=== PATIENT | female | born 1975 | race Caucasian/White ===

== ENCOUNTER 2020-01-04 17:22 | Emergency (ER) | payer OTHER, SELFPAY ==
--- NOTE | 2020-01-04 17:26 | ED.SKABFB ---
HPI - Skin/Abscess/Foreign Bdy General Chief complaint: Skin/Abscess/Foreign Body Stated complaint: red/swollen spot on left arm Time Seen by Provider: 01/04/20 17:34 Source: patient and RN notes reviewed Mode of arrival: ambulatory Limitations: no limitations History of Present Illness HPI narrative: 44-year-old female presents with concern for itchy red area to her left upper arm she noticed just prior to arrival. Denies pain, injury, sting. Reports suddenly felt an itch and noticed the redness. Denies any intervention. Denies any swollen lips, swollen tongue, difficulty breathing, nausea, vomiting, diarrhea, fever complaint: rash Related Data Home Medications Medication Instructions Recorded Confirmed No Home Medications 01/04/20 01/04/20 Allergies Allergy/AdvReac Type Severity Reaction Status Date / Time No Known Allergies Allergy Verified 01/04/20 17:37 Review of Systems Review of Systems: Narrative: CONSTITUTIONAL: Denies malaise, chills, sweats, or fever. EYES: Denies visual changes, redness, or discharge. ENT: Denies swollen lips, swollen tongue, difficulty swallowing CARDIOVASCULAR: Denies chest pain, palpitations, or edema. RESPIRATORY: Denies cough or dyspnea. GASTROINTESTINAL: Denies abdominal pain, nausea, vomiting, diarrhea SKIN: Reports red itchy rash on left elbow All systems reviewed & are unremarkable except as noted in HPI and below PMFSH Family History Family History (Updated 12/22/15 @ 23:19 by DOCTOR UNKNOWN) Father Family history of diabetes mellitus in first degree relative Mother Family history of colonic diverticulitis Social History Social History Smoking status: Never smoker Comments At time of signature, agree with nursing past medical, surgical, social and family history. There is no relevant family history pertinent to the presenting complaint Exam Narrative: Exam Narrative: GENERAL: Well-appearing, well-nourished, and in no acute distress. HEAD: Normocephalic EYES: PERRLA, conjunctivae clear ENT: Nares clear. Mucous membranes moist. Oropharynx without erythema edema, or lesions. NECK: Supple. No lymphadenopathy. CHEST: No respiratory distress. Speaks in full sentences. HEART: Regular rate and rhythm. SKIN: Warm, dry. Approximately 12 cm x 9 cm area of erythema, warmth with irregular borders consistent with hive, no entry site, scab, stinger noted. NEURO: Alert and oriented x3. PSYCH: Normal mood and affect Course Course Emergency Course: Patient is aware of diagnosis, understands and agrees to treatment plan. Anticipatory guidance given. Patient agrees to follow-up as directed and is aware of reasons to seek care at the emergency department. Portions of this record may have been created with voice recognition software Vital Signs Vital signs: Vital Signs Temperature 98.2 F 01/04/20 17:30 Pulse Rate 67 01/04/20 17:30 Respiratory Rate 14 01/04/20 17:30 Blood Pressure 128/78 01/04/20 17:30 Pulse Oximetry 99 01/04/20 17:30 Temperature 98.2 F 01/04/20 17:30 Pulse Rate 67 01/04/20 17:30 Respiratory Rate 14 01/04/20 17:30 Blood Pressure 128/78 01/04/20 17:30 Pulse Oximetry 99 01/04/20 17:30 Reviewed. MDM - Skin/Abscess/Foreign Bdy MDM Narrative Medical decision making narrative: Does not appear at this time to be erythema multiforme, bullous, SJS, TEN; no evidence at this time to suggest RMSF, endocarditis or Lyme disease; patient looks well, nontoxic and is tolerating oral intake; no neurologic signs or symptoms; no headache, photophobia or neck pain; afebrile; appropriate for initial outpatient treatment; discussed the importance of follow-up, patient agrees; question, viral exanthema, contact dermatitis, allergic dermatitis, eczema, urticaria, insect bite. No soft palate or uvula edema, no tongue, lip edema or other mucosal involvement, no respiratory compromise, no stridor, no wheezing, no wheezing, no history o
[2020-01-04 17:30] VITALS: BP 128/78; PULSE 67; RESP 14; TEMP 36.8; O2SAT 99
== END 2020-01-04 17:47 | disposition home or self-care (01) ==
PROVIDERS: Emergency Provider Nurse Practitioner; PCP Family Medicine
DX: S40.862A Insect bite (nonvenomous) of left upper arm, initial encounter (principal); W57.XXXA Bitten or stung by nonvenomous insect and other nonvenomous arthropods, initial encounter
CPT/HCPCS: 99211; G0463

== ENCOUNTER → 2021-11-08 15:40 | Outpatient (CLI) | payer OTHER, SELFPAY ==
--- NOTE | ~2021-11-08 | XR_ITS ---
XR cervical spine 4-5V DATE: 11/08/2021 16:08 INDICATION: Neck pain TECHNIQUE: AP, open-mouth, odontoid, bilateral oblique and lateral views COMPARISON: None FINDINGS: There is mild reversal of cervical curvature. C1 and C2 are normally aligned and the odontoid process is intact. No fracture or dislocation or lock ed facet or prevertebral soft tissue swelling. No significant bony encroachment upon the neural foramina. IMPRESSION: Reversal of cervical curvature Reviewed, dictated and finalized at location A.
== END ==
PROVIDERS: PCP Family Medicine; Visit Provider Chiropractor
DX: M54.2 Cervicalgia (principal)
CPT/HCPCS: 72050

== ENCOUNTER 2022-01-17 16:14 | Outpatient (CLI) | payer OTHER, SELFPAY ==
--- NOTE | ~2022-01-17 | MM_ITS ---
EXAMINATION: MM screening [facility] BI w [place] HISTORY: Screening TECHNIQUE: Craniocaudal and mediolateral oblique 3-D tomosynthesis images were obtained and synthetic 2-D images were generated. CAD analysis was submitted and interpreted. COMPARISON: Comparison to multiple prior studies sequentially, with oldest reviewed study dated 03/27. BREAST PARENCHYMAL COMPOSITION: The breasts are heterogeneously dense, which may obscure small masses FINDINGS: There are multiple developing bilateral breast masses which are partially obscured by dense fibroglandular tissue. There are no suspicious calcifications. IMPRESSION: 1. Multiple developing bilateral breast masses which are obscured. 2. Bilateral complete ultrasound recommended. BI-RADS Category 0: Incomplete: Needs additional imaging evaluation. Reviewed, dictated and finalized at location A.
== END 2022-01-17 16:15 | disposition home or self-care (01) ==
PROVIDERS: PCP Family Medicine; Visit Provider Family Medicine
DX: Z12.31 Encounter for screening mammogram for malignant neoplasm of breast (principal); R92.8 Other abnormal and inconclusive findings on diagnostic imaging of breast
CPT/HCPCS: 77063; 77067

== ENCOUNTER 2022-05-08 15:23 | Emergency (ER) | payer OTHER, SELFPAY ==
[2022-05-08 15:28] VITALS: BP 140/76; PULSE 118; RESP 18; TEMP 39; O2SAT 100
--- NOTE | 2022-05-08 16:33 | ED.URI ---
HPI - URI/Sore Throat General Chief Complaint: Upper Respiratory Infection Stated Complaint: Abdominal Pain/Diarrhea/Fever Time Seen by Provider: 05/08/22 16:33 Source: patient and RN notes reviewed Mode of arrival: ambulatory Limitations: no limitations History of Present Illness HPI Narrative: 37-year-old female presented for complaints of fever, diarrhea, and fatigue. Onset today. States at 0300 she woke in the night with diarrhea and abd cramping. she later woke to her alarm clock and had a few more episodes of diarrhea, for which she took Imodium and symptoms improved. Today at lunch she felt fatigued with abdominal cramping, fevers and chills and low back pain. She states her temperature was 101.2? at school today. She endorses postnasal drainage. She denies cough, shortness of breath, wheezing. 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 Related Data Home Medications Medication Instructions Recorded Confirmed levothyroxine 50 mcg tablet 50 mcg PO DAILY 05/08/22 05/08/22 (Euthyrox) phentermine 37.5 mg tablet 37.5 mg PO DAILY 05/08/22 05/08/22 Allergies Allergy/AdvReac Type Severity Reaction Status Date / Time No Known Allergies Allergy Verified 05/08/22 16:18 Review of Systems Review of Systems: ROS per HPI All systems reviewed & are unremarkable except as noted in HPI and below PMFSH Family History Family History Father Family history of diabetes mellitus in first degree relative Mother Family history of colonic diverticulitis Social History Social History Smoking status: Never smoker Comments At time of signature, I have reviewed and agree with nursing past medical, surgical, social and family history unless otherwise noted. Please see nursing chart for further information. There is no relevant family history pertinent to the presenting complaint Exam Narrative: GENERAL: ill-appearing, in no acute distress. EYES: EOMI. Conjunctivae normal. ENT: Mucous membranes pink and moist. CHEST: No respiratory distress. Clear to auscultation. HEART: Regular rate and rhythm. No murmur appreciated. Normal peripheral pulses. ABDOMEN: abd soft, nondistended, normal active bowel sounds. Nontender abdomen EXTREMITIES: Normal range of motion. No edema. SKIN: Warm, dry, no rash. Capillary refill normal. Normal skin turgor. NEURO: No focal deficits. Alert and oriented x3. PSYCH: Normal affect. Course Course Emergency Course: Patient is aware of diagnosis, understands and agrees to treatment plan. Anticipatory guidance given. Patient agrees to follow-up as directed and is aware of reasons to seek care at the emergency department. Portions of this record may have been created with voice recognition software Level of Care: Express Care Visit Vital Signs Vital signs: Vital Signs Temperature 102.2 F H 05/08/22 15:28 Pulse Rate 118 H 05/08/22 15:28 Respiratory Rate 18 05/08/22 15:28 Blood Pressure 140/76 05/08/22 15:28 Pulse Oximetry 100 05/08/22 15:28 Oxygen Delivery Room Air 05/08/22 15:28 Temperature 102.2 F H 05/08/22 15:28 Pulse Rate 118 H 05/08/22 15:28 Respiratory Rate 18 05/08/22 15:28 Blood Pressure 140/76 05/08/22 15:28 Pulse Oximetry 100 05/08/22 15:28 Oxygen Delivery Room Air 05/08/22 15:28 MDM - URI/Sore Throat MDM Narrative Medical decision making narrative: Due to lack of resources, unable to test for influenza at this time. Patient verbalizes understanding. Advised supportive measures and signs and symptoms to go to the ER. Patient is appropriate for outpatient treatment and follow-up. Differential Diagnosis Differential diagnosis: Likely upper respiratory infection, viral infection and influenza Discharge Plan Discharge Clinical Impression: Viral infection Patient Dispo
== END 2022-05-08 16:56 | disposition home or self-care (01) ==
PROVIDERS: Emergency Provider Nurse Practitioner Family; PCP Family Medicine
DX: B34.9 Viral infection, unspecified (principal)
CPT/HCPCS: 87081; 87147; 99212; G0463

== ENCOUNTER 2022-05-16 12:36 | Outpatient (CLI) | payer OTHER, SELFPAY ==
--- NOTE | ~2022-05-16 | US_ITS ---
US breast BI complete 05/16/2022 13:53 Indication: Bilateral breast masses seen on recent mammogram. Procedure: High-resolution complete bilateral breast ultrasound including all 4 quadrants in the suba reolar locations Comparison: No prior studies for comparison. Findings: There are multiple simple and complicated cysts of both breasts, largest on the right at 9: 00 measuring 4.8 x 3.1 x 2.9 cm. Largest cyst on the left measures 4.6 x 2.7 x 1.4 cm at 2:00, 4 cm f rom the nipple. No suspicious masses are identified in either breast to suggest malignancy. Impression: 1: Innumerable bilateral breast cysts corresponding to the masses seen on mammography. No sonographic evidence for malignancy. Routine yearly screening mammogram and regular clinical breast examination are recommended. BI-RADS CATEGORY 2 - BENIGN FINDINGS Reviewed, dictated and finalized at location A. [facility] Impression: 1: Innumerable bilateral breast cysts corresponding to the masses seen on mammo graphy. No sonographic evidence for malignancy. Routine yearly screening mammogram and regular clinical breast examination are recommended. BI-RADS CATEGORY 2 - BENIGN FINDINGS
== END 2022-05-16 12:37 | disposition home or self-care (01) ==
PROVIDERS: PCP Family Medicine; Visit Provider Family Medicine
DX: R92.8 Other abnormal and inconclusive findings on diagnostic imaging of breast (principal); N60.02 Solitary cyst of left breast; N60.01 Solitary cyst of right breast
CPT/HCPCS: 76641

== ENCOUNTER → 2023-01-16 16:52 | Outpatient (CLI) | payer OTHER, SELFPAY ==
--- NOTE | ~2023-01-16 | XR_ITS ---
EXAMINATION: XR foot LT min 3V DATE: 01/16/2023 17:09 INDICATION: Left heel pain TECHNIQUE: Dorsoplantar, two oblique and lateral views of the left foot were obtained. COMPARISON: Left ankle radiographs dated 11/06/2004 FINDINGS: Alignment is normal. No fracture. Mild osteoarthritis at the first metatarsophalangeal and a few tars al metatarsal and interphalangeal joints. Small Achilles calcaneal spur. No erosions. Unchanged [place]. Soft tissues are unremarkable. IMPRESSION: 1. 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 Reviewed, dictated and finalized at location A. IMPRESSION: 1. Small Achilles calcaneal spur and mild polyarticular osteoarthritis in the l eft fore and midfoot.
== END ==
PROVIDERS: PCP Family Medicine; Visit Provider Chiropractor
DX: M19.072 Primary osteoarthritis, left ankle and foot (principal); M77.32 Calcaneal spur, left foot
CPT/HCPCS: 73630

== ENCOUNTER 2023-04-23 15:51 | Emergency (ER) | payer OTHER, SELFPAY ==
--- NOTE | 2023-04-23 15:54 | ED.URI ---
HPI - URI/Sore Throat General Chief Complaint: Upper Respiratory Infection Stated Complaint: Sore Throat/Chest Congestion Time Seen by Provider: 04/23/23 15:54 Source: patient Mode of arrival: ambulatory Limitations: no limitations History of Present Illness HPI Narrative: Marquise is a 48-year-old female patient presenting to the clinic today with complaints of sore throat, nasal congestion, and chest congestion. She reports she has been having cough, chest congestion, and loss of her voice over the last month. States that sore throat started 2-3 days ago. No known fever or chills. No known exposure to anyone with COVID, flu, or strep. Has seen her PCP in the past for her symptoms and she was flu and COVID swabs at that time and they were negative. She was given a prescription for antibiotics and states that this helped slightly but as soon as she finished the antibiotics she started get sick again. MD elicited complaint: cough, sore throat, nasal congestion and sinus pain Related Data Home Medications Medication Instructions Recorded Confirmed ergocalciferol (vitamin D2) 1,250 1,250 mcg PO WEEKLY 04/23/23 04/23/23 mcg (50,000 unit) capsule levothyroxine 100 mcg tablet 100 mcg PO DAILY 04/23/23 04/23/23 Allergies Allergy/AdvReac Type Severity Reaction Status Date / Time No Known Allergies Allergy Verified 04/23/23 16:11 Review of Systems Review of Systems: Pertinent positives per HPI. Patient denies any fever, chills, rash, headache, visual changes, dizziness, shortness of breath, chest pain, palpitations, nausea, vomiting, diarrhea, constipation, abdominal pain, or any urinary issues. PMFSH Family History Family History Father Family history of diabetes mellitus in first degree relative Mother Family history of colonic diverticulitis Social History Social History Smoking status: Never smoker Comments At the time of my signature, I reviewed and agree with the nursing past medical, surgical, social, and family history. There is no relevant family history pertinent to the patient complaint. Exam Narrative: General: Well-developed, well nourished, in no apparent distress Head: Normocephalic, atraumatic Eyes: Pupils equally round and reactive to light bilaterally, EOM intact, sclera and conjunctive clear, no discharge, lids normal Ears: TMs intact and clear, ear canals clear, no drainage, grossly hearing normal. Nose: Nares patent, yellow nasal discharge, moderate inflammation, maxillary sinus tenderness. Mouth: Oral pharynx red without lesions or masses, good dentition, MMM. Postnasal drip Neck: Supple, trachea midline,enlargement of anterior cervical nodes, no thyroid masses or goiter palpable. Cardio: Regular rate and rhythm, s1 and s2 normal, no murmur appreciated. Resp: Clear to auscultation bilaterally, no rhonchi, rales, wheezing or rubs Course Course Emergency Course: Portions of this record may have been created with voice recognition software. Level of Care: Express Care Visit Vital Signs Vital signs: Vital signs reviewed MDM - URI/Sore Throat MDM Narrative Medical decision making narrative: At the time of visit patient is resting comfortably on exam table. Patient is nontoxic appearing. i suspect patient has acute bacterial rhinosinusitis. Prescription for Augmentin and prednisone was sent to the pharmacy and supportive measures were discussed with the patient she voiced understanding discharge instructions and agrees to treatment plan. Return precautions were reviewed Differential Diagnosis Differential diagnosis: Likely upper respiratory infection, otitis media, sinusitis, viral infection, bronchitis, influenza, pharyngitis and other (COVID) Discharge Plan Discharge Clinical Impression: Acute bacterial rhinosinusitis Patient Disposition: Home, S
[2023-04-23 15:59] VITALS: BP 162/88; PULSE 86; RESP 14; TEMP 37.3; O2SAT 96
== END 2023-04-23 16:13 | disposition home or self-care (01) ==
PROVIDERS: Emergency Provider Nurse Practitioner Family; PCP Family Medicine
DX: J01.90 Acute sinusitis, unspecified (principal); E03.9 Hypothyroidism, unspecified
CPT/HCPCS: 87081; 87880; 99213; G0463

== ENCOUNTER 2023-06-15 08:03 | Emergency (ER) | payer OTHER, SELFPAY ==
[2023-06-15 08:12] VITALS: BP 135/90; PULSE 90; RESP 20; TEMP 37.1; O2SAT 100
--- NOTE | 2023-06-15 08:19 | ED.URI ---
HPI - URI/Sore Throat General Chief Complaint: Upper Respiratory Infection Stated Complaint: Headahce/Neck Pain/Cough History of Present Illness HPI Narrative: Patient presents with nasal congestion postnasal drainage and cough. Patient states her cough is nonproductive and is taking Delsym for her symptoms. Patient is taking ibuprofen for her body aches. Patient states her symptoms have been going on for 6 days. Patient denies any shortness of breath no chest pain. States she has a normally healthy individual and does not smoke. Related Data Home Medications Medication Instructions Recorded Confirmed ergocalciferol (vitamin D2) 1,250 1,250 mcg PO WEEKLY 04/23/23 06/15/23 mcg (50,000 unit) capsule levothyroxine 100 mcg tablet 100 mcg PO DAILY 04/23/23 06/15/23 Allergies Allergy/AdvReac Type Severity Reaction Status Date / Time No Known Allergies Allergy Verified 06/15/23 08:18 Review of Systems Review of Systems: CONSTITUTIONAL: Denies chills, or sweats. Reports fever and generalized body aches EYES: Denies visual changes, redness, or discharge. ENT: Denies otalgia. Reports nasal congestion runny nose and sore throat CARDIOVASCULAR: Denies chest pain, palpitations, or edema. RESPIRATORY: Denies dyspnea. Reports occasional cough GASTROINTESTINAL: Denies abdominal pain, nausea, vomiting, or diarrhea. GENITOURINARY: Denies dysuria or hematuria. SKIN: Denies rash or itching. MUSCULOSKELETAL: Denies back pain, joint pain, or myalgia. Reports generalized body aches NEUROLOGIC: Denies headache, numbness, or weakness. PSYCHIATRIC: Denies anxiety or depression. [facility] Family History Family History Father Family history of diabetes mellitus in first degree relative Mother Family history of colonic diverticulitis Social History Social History Smoking status: Never smoker Comments At time of signature, agree with nursing past medical, surgical, social and family history. There is no relevant family history pertinent to the presenting complaint Exam Narrative: The patient is a well-developed, well-nourished in no acute distress. SKIN: Skin is warm and dry without erythema, swelling or exudate. There is good turgor. No tenting. HEAD: Atraumatic. Normocephalic. No temporal or scalp tenderness. EYES: Moist and bright. Sclera and conjunctivae normal. No discharge. PERRLA. Extraocular motions intact. Gross visual acuity intact. EARS: Pinna is normal shape and contour. Clear external auditory canals. TM pearly goss with good cone of light, no erythema or suppuration. Bilateral cerumen noted no gross hearing deficit. NOSE: pink, moist mucosa with good air movement. Clear rhinorrhea without nasal flaring. Septum midline. Mouth: moist mucous membranes. THROAT; mild erythema noted to posterior oropharynx with moderate postnasal drainage. Without exudate or ulceration.. Uvula midline. Normal movement of soft palate. NECK: Supple and nontender with full range of motion without discomfort. No meningeal signs. LUNGS: Equal and bilateral breath sounds without wheezes, rales or rhonchi. CHEST: The chest wall is without retractions or use of accessory muscles. HEART: Has a regular rate and rhythm without murmur, gallops, click or rub. ABDOMEN: Soft, nontender with positive active bowel sounds. No rebound tenderness. EXTREMITIES: Without cyanosis, clubbing or edema. Equal 2+ distal pulses and 2 second capillary refill noted. NEUROLOGIC: alert, active, . The patient moves all extremities with normal muscle strength. Normal muscle tone is noted. Normal coordination is noted. NO focal neurological findings noted. Course Course Level of Care: Express Care Visit Vital Signs Vital signs: Vital Signs Temperature 37.1 C 06/15/23 08:12 Pulse Rate 90 06/15/23 08:12 Respiratory Rate 20 06/15/23 08
== END 2023-06-15 08:28 | disposition home or self-care (01) ==
PROVIDERS: Emergency Provider Nurse Practitioner Family; PCP Family Medicine
DX: J06.9 Acute upper respiratory infection, unspecified (principal); J40 Bronchitis, not specified as acute or chronic; B34.9 Viral infection, unspecified; E03.9 Hypothyroidism, unspecified
CPT/HCPCS: 99213; G0463

== ENCOUNTER 2023-07-07 16:53 | Emergency (ER) | payer OTHER, SELFPAY ==
[2023-07-07 16:58] VITALS: BP 146/83; PULSE 90; RESP 20; TEMP 37.1; O2SAT 100
--- NOTE | 2023-07-07 18:23 | ED.EAR ---
HPI - Ear Problem General Chief complaint: Ear Stated complaint: Left Ear Pain Time Seen by Provider: 07/07/23 18:25 Source: patient Mode of arrival: ambulatory Limitations: no limitations History of Present Illness HPI Narrative: 48 year old female who presents to [facility] care with complaints of left ear pain since Friday 3-4 days. Patient reports that she has been taking some Ibuprofen for her discomfort.Patient reports some itching sensation along with pain to her left ear with pain radiating down into her neck. Patient reports no fevers or any other symptoms. MD Complaint: ear pain Location: left ear Duration: constant Severity: moderate Discharge from ear: Reports no Treatment prior to arrival: oral analgesic (Ibuprofen) Related Data Home Medications Medication Instructions Recorded Confirmed ergocalciferol (vitamin D2) 1,250 1,250 mcg PO WEEKLY 04/23/23 06/15/23 mcg (50,000 unit) capsule levothyroxine 100 mcg tablet 100 mcg PO DAILY 04/23/23 06/15/23 Allergies Allergy/AdvReac Type Severity Reaction Status Date / Time No Known Allergies Allergy Verified 06/15/23 08:18 Review of Systems Review of Systems: CONSTITUTIONAL: Denies malaise, chills, sweats, or fever. EYES: Denies visual changes, redness, or discharge. ENT: Reports no rhinorrhea, congestion, no sinus pain,left otalgia and no sore throat. CARDIOVASCULAR: Denies chest pain, palpitations, or edema. RESPIRATORY: Reports no cough.? Denies dyspnea. GASTROINTESTINAL: Denies abdominal pain, nausea, vomiting, diarrhea SKIN: Denies rash or itching. MUSCULOSKELETAL: Denies myalgia. NEUROLOGIC: Denies headache. All systems reviewed & are unremarkable except as noted in HPI and below PMFSH Past Medical History Medical History Fracture of right foot Hypothyroidism Surgical History Surgical History (Updated 07/08/23 @ 21:47 by Preethi Jorgensen NP) History of tonsillectomy Family History Family History Father Family history of diabetes mellitus in first degree relative Mother Family history of colonic diverticulitis Social History Social History Smoking status: Never smoker Comments At time of signature, agree with nursing past medical, surgical, social and family history. There is no relevant family history pertinent to the presenting complaint Exam Narrative: GENERAL: Well-appearing, well-nourished, and in no acute distress. HEAD: Normocephalic EYES: PERRLA, conjunctivae clear ENT: Nares clear, turbinates edematous and erythematous, clear discharge. Mucous membranes moist. TM pearly murrell with dull light reflex bilaterally; no tragal tenderness.Left ear canal excoriated with no drainage noted. Oropharynx erythematous without lesions. Tonsils not present and throat,without exudate, no drooling, no hoarseness, no trismus, uvula midline. NECK: Supple. No lymphadenopathy CHEST: Clear to auscultation, breath sounds equal. No wheezing, rhonchi, rales, or stridor. No respiratory distress, speaks in full sentences.SAO2 100% on room air HEART: Regular rate and rhythm. No murmur heard. SKIN: Warm, dry, no rash. NEURO: Alert and oriented x3. PSYCH: Normal mood and affect Course Course Emergency Course: Patient is aware of diagnosis, understands and agrees to treatment plan.? Anticipatory guidance given.? Patient agrees to follow-up as directed and is aware of reasons to seek care at the emergency department. Portions of this record may have been created with voice recognition software Level of Care: Express Care Visit Vital Signs Vital signs: Vital Signs Temperature 37.1 C 07/07/23 16:58 Pulse Rate 90 07/07/23 16:58 Respiratory Rate 20 07/07/23 16:58 Blood Pressure 146/83 H 07/07/23 16:58 Pulse Oximetry 100 07/07/23
== END 2023-07-07 18:43 | disposition home or self-care (01) ==
PROVIDERS: Emergency Provider Registered Nurse; PCP Family Medicine
DX: H60.312 Diffuse otitis externa, left ear (principal); E03.9 Hypothyroidism, unspecified
CPT/HCPCS: 99213; G0463

== ENCOUNTER 2023-08-26 11:35 | Outpatient (CLI) | payer OTHER, SELFPAY ==
--- NOTE | ~2023-08-26 | US_ITS ---
Pelvic ultrasound. Clinical History: Amenorrhea Technique: Realtime transabdominal and transvaginal scanning of the pelvis was performed. Color flow Doppler and Doppler spectral analysis were performed. Findings: The uterus is anteverted. The endometrial stripe has a thickness of 6 mm. Probable small i ntrarenal fibroid measures 1.1 cm. Cervical nabothian cysts are present. The right ovary measures 3.6 x 2.9 x 0.3 cm. No significant right ovarian or adnexal mass is seen. The left ovary measures 2.5 x 2.0 x 2.4 cm. No significant left ovarian or adnexal mass is seen. There is no evidence of free fluid in the cul de sac. Impression: Probable small uterine fibroid, as above. Reviewed, dictated and finalized at location . Impression: Probable small uterine fibroid, as above.
== END 2023-08-26 11:36 ==
LOC: MICIMG 11:36
PROVIDERS: PCP Family Medicine; Visit Provider Family Medicine
DX: N91.2 Amenorrhea, unspecified (principal)
CPT/HCPCS: 76830; 76856

== ENCOUNTER 2023-10-07 16:14 | Emergency (ER) | payer OTHER, SELFPAY ==
[2023-10-07 16:18] VITALS: BP 145/75; PULSE 94; RESP 20; TEMP 37.1; O2SAT 98
--- NOTE | 2023-10-07 17:24 | ED.URI ---
HPI - URI/Sore Throat General Chief Complaint: Upper Respiratory Infection Stated Complaint: upper respiratory Time Seen by Provider: 10/07/23 16:37 Source: patient, RN notes reviewed and old records reviewed Mode of arrival: ambulatory Limitations: no limitations History of Present Illness HPI Narrative: 48-year-old female to [facility] room for complaint of cough with thick yellow sputum, fatigue,and hoarseness intermittently over past 2 weeks. Patient denies fever, shortness breath, chest pain , allergies. patient able to tolerate fluids by mouth. Related Data Home Medications Medication Instructions Recorded Confirmed ergocalciferol (vitamin D2) 1,250 1,250 mcg PO WEEKLY 04/23/23 10/07/23 mcg (50,000 unit) capsule levothyroxine 100 mcg tablet 100 mcg PO DAILY 04/23/23 10/07/23 semaglutide 0.25 mg or 0.5 mg (2 0.25 mg subcut WEEKLY 10/03/23 10/07/23 mg/3 mL) subcutaneous pen injector phentermine 37.5 mg tablet 37.5 mg PO DAILY 10/07/23 10/07/23 Allergies Allergy/AdvReac Type Severity Reaction Status Date / Time No Known Allergies Allergy Verified 10/07/23 16:27 Review of Systems Review of Systems: All systems reviewed & are unremarkable except as noted in HPI and below Constitutional: Constitutional: Reports as per HPI, Reports fatigue and Denies fever(s) Eyes: Eyes: Reports no additional eye complaints ENT: Reports as per HPI, Reports hoarseness and Reports sinus pressure Cardiovascular: Cardiovascular: Reports no additional cardiovascular complaints, Denies chest pain and Denies dyspnea Respiratory: Respiratory: Reports no additional respiratory complaints, Reports cough, Reports pain on inspiration and Denies dyspnea Musculoskeletal: Musculoskeletal: Reports no additional musculoskeletal complaints Neurologic: Reports system reviewed and no additional complaints, except as documented Psychiatric: Psychiatric: Reports no additional psychiatric complaints [facility] Past Medical History Medical History Fracture of right foot Hypothyroidism Surgical History Surgical History History of tonsillectomy Family History Family History Father Family history of diabetes mellitus in first degree relative Mother Family history of colonic diverticulitis Social History Social History Smoking status: Never smoker Substance use type: does not use Living arrangements: with family Spiritual care concerns: No Comments At the time of my signature, I reviewed and agree with the nursing past medical, surgical, social, and family history. There is no relevant family history pertinent to the patient complaint. Exam Const: General: cooperative, comfortable, no acute distress, alert, ill appearing acutely, tired appearing and well nourished Nutritional Appearance: well nourished Orientation/consciousness: patient oriented x3 Limitations: no limitations HENMT: Head: normal to inspection Ears: TM abnormal bulging, bullous, erythematous and with fluid behind the TM Face/Nose/Sinus: Normal external nose present, Normal nares present, normal facial exam, No erythema and No edema Face and sinus: normal facial exam, no erythema and no edema Mouth: Yes Normal oral and palatal mucosa present Throat: posterior oropharynx abnormal erythema and postnasal drainage Eyes: General: appearance normal, both eyes and all related structures Neck: Neck: normal visual inspection, full ROM and no meningeal signs Lymphatic: no lymphadenopathy noted and no lymphedema noted Chest: Chest palpation & inspection: normal inspection of the chest Resp: Effort & Inspection: normal respiratory effort and able to speak in complete sentences Auscultation: clear to auscultation bilaterally
== END 2023-10-07 17:05 | disposition home or self-care (01) ==
PROVIDERS: Emergency Provider Nurse Practitioner Family; PCP Family Medicine
DX: H66.93 Otitis media, unspecified, bilateral (principal); E03.9 Hypothyroidism, unspecified
CPT/HCPCS: 99213; G0463

== ENCOUNTER 2023-10-14 06:38 | Day surgery (SDC) | payer OTHER, SELFPAY ==
[2023-08-22 12:45] VITALS: BMI 32.6
[2023-10-03 09:37] VITALS: BMI 33.8
--- NOTE | 2023-10-13 12:34 | PM.HPGS ---
History of Present Illness History of Present Illness Consent: Risks, benefits, and alternatives have been discussed and questions answered. Patient agrees to proceed with procedure. Chief complaint: Neoplasm Screening Narrative: Marquise Jeronimo is a 48 year old female Referred for colon cancer screening. Review of Systems Review of Systems: All systems reviewed & are unremarkable except as noted in HPI and below PMFSH Past Medical History Medical History Fracture of right foot Hypothyroidism Surgical History Surgical History History of tonsillectomy Family History Family History Father Family history of diabetes mellitus in first degree relative Mother Family history of colonic diverticulitis Social History Social History Smoking status: Never smoker Substance use type: does not use Living arrangements: with family Spiritual care concerns: No Meds Home Medications and Allergies Home Medications Medication Instructions Recorded Confirmed Type ergocalciferol (vitamin D2) 1,250 1,250 mcg PO WEEKLY 04/23/23 10/14/23 History mcg (50,000 unit) capsule levothyroxine 100 mcg tablet 100 mcg PO DAILY 04/23/23 10/14/23 History semaglutide 0.25 mg or 0.5 mg (2 0.25 mg subcut WEEKLY 10/03/23 10/14/23 History mg/3 mL) subcutaneous pen injector amoxicillin 875 mg tablet 875 mg PO Q12H #20 tabs 10/07/23 Rx Allergies Allergy/AdvReac Type Severity Reaction Status Date / Time No Known Allergies Allergy Verified 10/14/23 07:31 Exam Const: General: alert Orientation/consciousness: patient oriented x3 Resp: Auscultation: clear to auscultation bilaterally Cardio: Rhythm: regular rhythm GI: GI Palp: Yes Soft to palpation and No Tenderness to palpation present (GI) Neuro: General: patient oriented x3 Assessment and Plan Assessment and plan (1) Colon cancer screening: Code(s): Z12.11 - Encounter for screening for malignant neoplasm of colon Status: Acute Assessment and Plan: Colonoscopy with possible biopsy or polypectomy or cautery or injection of substances.
--- NOTE | 2023-10-14 06:47 | WPDANESEPPF ---
Anes - Initial Pre Proc Eval Procedure: Operation Date: 10/14/23 08:30 Proposed Procedures p Screening Colonoscopy - Dustin Orta MD Date/Time: 10/14/23 06:47 Surgeon: Dustin Orta MD Pre Op Diagnosis: Neoplasm Screening Patient Data Age: 48 Gender: F Height: 1.57 m Weight: 84 kg Allergies Allergy/AdvReac Type Severity Reaction Status Date / Time No Known Allergies Allergy Verified 10/14/23 07:31 Home Medications Medication Instructions Recorded Confirmed Type ergocalciferol (vitamin D2) 1,250 1,250 mcg PO WEEKLY 04/23/23 10/14/23 History mcg (50,000 unit) capsule levothyroxine 100 mcg tablet 100 mcg PO DAILY 04/23/23 10/14/23 History semaglutide 0.25 mg or 0.5 mg (2 0.25 mg subcut WEEKLY 10/03/23 10/14/23 History mg/3 mL) subcutaneous pen injector amoxicillin 875 mg tablet 875 mg PO Q12H #20 tabs 10/07/23 Rx Patient hx anesthesia problems: none Family hx anesthesia problems: none Results Review: All pre-operative results and documents have been reviewed as part of the pre-operative evaluation. [facility] Past Medical History Medical History Fracture of right foot Hypothyroidism Surgical History Surgical History History of tonsillectomy Family History Family History Father Family history of diabetes mellitus in first degree relative Mother Family history of colonic diverticulitis Social History Social History Smoking status: Never smoker Substance use type: does not use Living arrangements: with family Spiritual care concerns: No Anes - Eval Final PreProcedure Day of Procedure 10/14/23 06:47 Patient weight: obese Heart: regular rate and rhythm Lungs: clear to auscultation Airway: Mallampati scale class II Neurological: alert and oriented Last oral intake: >/= 8 hours ASA classification: II Emergent: no Anesthetic plan: proceed Anesthesia type and monitoring: general GIVS and standard monitoring Results Review: All pre-operative results and documents have been reviewed as part of the pre-operative evaluation. Informed Consent: The patient's anesthetic plan and its attendant risks and benefits were discussed with the patient/family/POA. Questions were solicited and answers provided to the satisfaction of the patient/family/POA.
[2023-10-14 07:39] VITALS: BP 138/86; PULSE 79; RESP 20; TEMP 37.2; O2SAT 98; BMI 34.3
[2023-10-14] MEDS: LACTATED RINGERS 1,000 ML 150 ML IV CONT (07:50)
[2023-10-14 08:09] VITALS: BP 117/77; PULSE 87; RESP 16; O2SAT 98
[2023-10-14 08:19] VITALS: BP 132/85; PULSE 80; RESP 16; O2SAT 98
[2023-10-14 08:29] VITALS: BP 128/95; PULSE 78; RESP 16; O2SAT 99
--- NOTE | 2023-10-14 11:05 | WPDANESPN ---
Anes - Prog Note Post-Op Date/Time: 10/14/23 11:05 Cardiovascular status: normal Respiratory status: normal Airway patency: baseline Mental status: baseline Post-Op hydration status: normal Vital Signs: Last Vital Signs Temp 37.2 C 10/14/23 07:39 Pulse 78 10/14/23 08:29 Resp 16 10/14/23 08:29 BP 128/95 H 10/14/23 08:29 Pulse Ox 99 10/14/23 08:29 O2 Del Method Room Air 10/14/23 08:29 Pain Score (VAS): 0 I/O: Intake & Output 10/13/23 10/14/23 10/14/23 23:59 07:59 15:59 Intake Total 200 Balance 200 Post-procedural complaints: none Patient Feedback: Patient satisfied with anesthetic care. Other Findings: Patient vital signs back to baseline. Patient denies nausea and vomiting. Patient's pain under control. Patient OK for discharge.
== END 2023-10-14 08:35 | disposition home or self-care (01) ==
PROVIDERS: PCP Family Medicine; Visit Provider Internal Medicine Gastroenterology
PROC: 0DJD8ZZ Inspection of Lower Intestinal Tract, Via Natural or Artificial Opening Endoscopic (ICD-10-PCS; CPT 45378; principal; 2023-10-14 08:30)
DX: Z12.11 Encounter for screening for malignant neoplasm of colon (principal); K57.30 Diverticulosis of large intestine without perforation or abscess without bleeding; K64.8 Other hemorrhoids
CPT/HCPCS: 45378

== ENCOUNTER 2024-01-22 16:16 | Outpatient (CLI) | payer OTHER, SELFPAY ==
--- NOTE | ~2024-01-22 | MM_ITS ---
EXAMINATION: MM screening [facility] w [facility] HISTORY: Screening TECHNIQUE: Craniocaudal and mediolateral oblique 3-D tomosynthesis images were obtained and synthetic 2-D images were generated. CAD analysis was submitted and interpreted. COMPARISON: Comparison to multiple prior studies sequentially, with oldest reviewed study dated 06/18. BREAST PARENCHYMAL COMPOSITION: Dense: The breasts are heterogeneously dense, which may obscure small masses FINDINGS: There are bilateral masses obscured by dense fibroglandular tissue most of which have decre ased in size over time, consistent with benign masses. There is no evidence of suspicious mass, calci fication, or architectural distortion to suggest malignancy in either breast. There has been no suspi cious interval change. IMPRESSION: 1. No mammographic evidence of malignancy. 2. Recommend routine screening mammography in one year. BI-RADS Category 2: Benign finding(s). Reviewed, dictated and finalized at location B.
== END 2024-01-22 16:17 | disposition home or self-care (01) ==
LOC: ANHIMG 16:17
PROVIDERS: PCP Family Medicine; Visit Provider Family Medicine
DX: Z12.31 Encounter for screening mammogram for malignant neoplasm of breast (principal); N63.20 Unspecified lump in the left breast, unspecified quadrant; N63.10 Unspecified lump in the right breast, unspecified quadrant
CPT/HCPCS: 77063; 77067

== ENCOUNTER 2024-07-24 12:59 | Emergency (ER) | payer OTHER, SELFPAY ==
[2024-07-24 13:05] VITALS: BP 143/72; PULSE 88; RESP 20; TEMP 36.6; O2SAT 99
--- NOTE | 2024-07-24 13:08 | ED.URI ---
HPI - URI/Sore Throat General Chief Complaint: Upper Respiratory Infection Stated Complaint: Sore Throat/Cough Time Seen by Provider: 07/24/24 13:08 Source: patient and RN notes reviewed Mode of arrival: ambulatory Limitations: no limitations History of Present Illness HPI Narrative: 41-year-old female presents with concern of for 3 week history of symptoms that worsen several days ago. Reports her symptoms started to get better and then got worse. She reports she has been taking [id number] medications without relief. She reports ear pain, sore throat, drainage, pain across her cheeks and upper chest discomfort. MD elicited complaint: cough and nasal congestion Related Data Home Medications ?Medication ?Instructions ?Recorded ?Confirmed ?Last Taken ?Type levothyroxine 100 mcg tablet 88 mcg PO DAILY 04/23/23 07/24/24 10/14/23 06:30 History semaglutide 0.25 mg or 0.5 mg (2 0.25 mg subcut WEEKLY 10/03/23 07/24/24 09/27/23 History mg/3 mL) subcutaneous pen injector Allergies Allergy/AdvReac Type Severity Reaction Status Date / Time No Known Allergies Allergy Verified 07/24/24 13:03 Review of Systems Review of Systems: CONSTITUTIONAL: Reports malaise, sweats. Denies chills, or fever. EYES: Denies visual changes, redness, or discharge. ENT: Reports rhinorrhea, congestion, sinus pain, otalgia and sore throat. CARDIOVASCULAR: Denies chest pain, palpitations, or edema. RESPIRATORY: Reports cough and chest congestion. Denies dyspnea. GASTROINTESTINAL: Denies abdominal pain, nausea, vomiting, diarrhea SKIN: Denies rash or itching. MUSCULOSKELETAL: Denies myalgia. NEUROLOGIC: Denies headache. All systems reviewed & are unremarkable except as noted in HPI and below PMFSH Past Medical History Medical History Fracture of right foot Hypothyroidism Surgical History Surgical History History of tonsillectomy Family History Family History Father Family history of diabetes mellitus in first degree relative Mother Family history of colonic diverticulitis Social History Social History Smoking status: Never smoker Substance use type: does not use Living arrangements: with family Spiritual care concerns: No Comments At time of signature, agree with nursing past medical, surgical, social and family history. There is no relevant family history pertinent to the presenting complaint Exam Narrative: GENERAL: Well-appearing, well-nourished, and in no acute distress. HEAD: Normocephalic EYES: PERRLA, conjunctivae clear ENT: Nares clear, turbinates edematous and erythematous. Mucous membranes moist. TM pearly murrell with dull light reflex bilaterally; no tragal tenderness. Oropharynx not erythematous without lesions. Tonsils not enlarged and without exudate, no drooling, no hoarseness, no trismus, uvula midline. NECK: Supple. No lymphadenopathy CHEST: Clear to auscultation, breath sounds equal. No wheezing, rhonchi, rales, or stridor. No respiratory distress, speaks in full sentences. HEART: Regular rate and rhythm. No murmur heard. SKIN: Warm, dry, no rash. NEURO: Alert and oriented x3. PSYCH: Normal mood and affect Course Course Emergency Course: Patient is aware of diagnosis, understands and agrees to treatment plan. Anticipatory guidance given. Patient agrees to follow-up as directed and is aware of reasons to seek care at the emergency department. Portions of this record may have been created with voice recognition software Level of Care: Express Care Visit Vital Signs Vital signs: Vital Signs Temperature 98 F 07/24/24 13:05 Pulse Rate 88 07/24/24 13:05 Respiratory Rate 20 07/24/24 13:05 Blood Pressure 143/72 H 07/24/24 13:05 Pulse Oximetry 99 07/24/24 13:05 Oxygen Delivery Room Air 07/24/24 13:05 Temperature 98 F 07/24/24 13:05 Pulse Rate 88 07/24/24 13:05 Respiratory Rate 20 07/24/24 13:05 Blood Pressure 143/72 H 07/24/24 13:05 Pulse Oximetry 99 07/24/24 13:05 Oxygen Delivery Room Air 07/24/24 13:05 Reviewed. MDM - URI/Sore Throat MDM Narrative Medical decision making narrative: Differential diagnosis considered: De La Torre virus, strep pharyngitis, allergic rhinitis, upper respiratory tract infection, sinusitis, rhinosinusitis, nasopharyngitis. viral pharyngitis, otitis media, otitis externa, pneumonia, bronchitis, viral cough syndrome, viral syndrome, and influenza. Exam findings show no acute concerns or changes; patient is non-toxic appearing and is in no distress. Patient is appropriate for outpatient treatment and follow-up. Lab Data Attestation: I reviewed the patient's lab results. Critical Care Time Critical Care Time Critical Care Time: No Discharge Plan Discharge Clinical Impression: Sinusitis Patient Disposition: Home, Self-Care Condition: Stable Instructions: Antibiotic Form, Sinusitis (ED) Additional Instructions: Take medications as prescribed Nonprescription pain medications, such as acetaminophen (eg, Tylenol) or ibuprofen (eg, Motrin, Advil), are recommended for pain. Flushing the nose and sinuses with a saline solution several times per day has been proven to decrease pain associated with congestion and shorten the duration of symptoms. Nasal steroids (such as Flonase, 2 sprays in each nostril daily) can help to reduce swelling inside the nose, usually within two to three days. These drugs have few side effects and relieve symptoms in most people. Oral decongestants (pseudoephedrine and phenylephrine) may be helpful if you have associated symptoms of ear pain or fullness. Nasal decongestant sprays, including oxymetazoline (Afrin) and phenylephrine (Jaya-Synephrine), can be used to temporarily treat congestion. However, these sprays should not be used for more than two to three days due to the risk of rebound congestion (when the nose becomes congested constantly unless the medication is used repeatedly), possible addiction, and long-term consequences of frequent use, including persistent nasal dryness and crusting, which is very difficult to treat once it has developed. Medications to thin secretions (such as guaifenesin) may help to clear mucus. Please follow-up with your primary care doctor in the next 1-2 days. If you cannot follow-up with your primary care doctor please go to the ED for any urgent issues. If you have any worsening of symptoms or any other concerns please go to the ED immediately. Patient Language: Italian Prescriptions: New methylprednisolone [Medrol (Chivo)] 4 mg tablets,dose pack See Rx Instructions .ROUTE .COMPLEX Qty: 21 0RF Rx Instructions: orally per package directions amoxicillin-pot clavulanate 875-125 mg tablet 1 tablet PO Q12H 10 Days Qty: 20 0RF No Action levothyroxine 100 mcg tablet 88 mcg PO DAILY semaglutide 0.25 mg or 0.5 mg (2 mg/3 mL) Pen Injector 0.25 mg SUBCUT WEEKLY Patient Comments: Friday's Rx Instructions: for 4 weeks Follow-up/Referrals: PHYSICIAN NOT ON STAFF,NONSTAFF [Primary Care Provider] - Time of Disposition: 13:34
[2024-07-24 13:37] LABS: EDCOVIDSCREEN Negative (Negative); EDINFLUASCREEN Negative (Negative); EDINFLUBSCREEN Negative (Negative); EDSTREPNEGPOS1 Negative (Negative)
== END 2024-07-24 13:55 | disposition home or self-care (01) ==
PROVIDERS: Emergency Provider Nurse Practitioner
DX: J32.9 Chronic sinusitis, unspecified (principal); Z20.822 Contact with and (suspected) exposure to COVID-19
CPT/HCPCS: 87081; 87426; 87804; 87880; 99213; G0463

== ENCOUNTER 2025-03-11 11:38 | Emergency (ER) | payer OTHER, SELFPAY ==
[2025-03-11 11:48] VITALS: BP 138/72; PULSE 73; RESP 18; TEMP 36.9; O2SAT 97
[2025-03-11 12:25] LABS: EDSTREPNEGPOS1 Negative (Negative)
--- OUTSIDE RECORDS SUMMARY | 2025-03-11 12:25 | XMS_ITS | Clinical Summary ---
Author Organization [facility] Address [address] [place] [address] Care Team Providers Care Carpenter Bridge Name Role Phone Unknown, Notinfile Unavailable Unavailable Miscellaneous, Not In File Primary Care Provider Unavailable Allergies No known active allergies Medications multivit-min/vit C/herb no.124 (AIRBORNE GUMMY ORAL) Take by mouth Active ergocalciferol (VITAMIN D) 50,000 unit capsule 10/21/2020 Active phentermine (ADIPEX-P) 37.5 mg tablet 2 11/03/2020 Active Active Problems Problem Noted Date Diagnosed Date Abnormal finding on thyroid function test 2017 Vitamin D deficiency 12/30/2017 Medical History Medical History Date Comments Hypertension Social History Tobacco Use Types Packs/Day Years Used Date Smoking Tobacco: Never Smokeless Tobacco: Never Alcohol Use Standard Drinks/Week Comments No 0 (1 standard drink = 0.6 oz pur e alcohol) Personal Safety Answer Date Recorded Getting School Help Needed Not on file 05/28 Comments Unknown Sex and Gender Information Value Date Recorded Sex Assigned at Not on file Legal Sex Female 10:50 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 Gender Identity Not on file Sexual Orientation Not on file Obstetrics History Last Filed Vital Signs Vital Sign Reading Time Taken Comments Blood Pressure 112/58 05/09/2022 10:30 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 Pulse 92 05/09/2022 10:30 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 Temperature 36.8 C (98.3 F) 05/09/2022 7:33 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 Respiratory Rate 18 05/09/2022 10:30 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 Oxygen Saturation 100% 05/09/2022 10:30 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 Inhaled Oxygen Concentration - - Weight 81.6 kg (180 lb) 05/09/2022 2:36 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 Height 157.5 cm (5' 2) 11/21/2020 3:12 PM CDT Body Mass Index 32.92 11/21/2020 3:12 PM CDT Plan of Treatment Health Maintenance Due Date Last Done Comments Breast Cancer Screening-Mammogram 1976 Cervical Cancer Screening 1976 Colon Cancer Screening-Colonoscopy 1976 Depression Screening 1976 Hepatitis C Screening 1976 DTaP/Tdap/Td Vaccine (1 - Tdap) 02/14/1987 Hepatitis B Screening 02/14/1994 Regular Well Visit/Exam 18-64 02/14/1994 Covid-19 Vaccine (2024-2 6 season) 2025 01/31/2021, 01/09/2021 Influenza Vaccine (#1) 2025 Pneumococcal vaccine <65 Aged Out No longer eligible based on patient's age to complete this topic Insurance [facility] Care Teams Carpenter Bridge Relationship Specialty Start Date End Date Miscellaneous, Not In File PCP - General 05/09/22 Unknown, Notinfile 12/24/16
--- NOTE | 2025-03-11 12:26 | ED_ITS ---
HPI - URI/Sore Throat General Chief Complaint: Upper Respiratory Infection Stated Complaint: Sore Throat Time Seen by Provider: 03/11/25 12:21 Source: patient and RN notes reviewed Mode of arrival: ambulatory Limitations: no limitations History of Present Illness HPI Narrative: 50-year-old female patient presents today with sore throat and itchy ears since last night. Denies any additional symptoms to include cough, congestion, rhinorrhea. 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 Currently rates her pain 12/02 and has tried no OTC treatment prior to arrival. Related Data Home Medications ?Medication ?Instructions ?Recorded ?Confirmed ?Last Taken ?Type levothyroxine 100 mcg tablet 88 mcg PO DAILY 04/23/23 07/24/24 10/14/23 06:30 History semaglutide 0.25 mg or 0.5 mg (2 0.25 mg subcut WEEKLY 10/03/23 07/24/24 09/27/23 History mg/3 mL) subcutaneous pen injector Allergies Allergy/AdvReac Type Severity Reaction Status Date / Time No Known Allergies Allergy Verified 03/11/25 11:43 [facility] Past Medical History Medical History Fracture of right foot Hypothyroidism Surgical History Surgical History History of tonsillectomy Family History Family History Father Family history of diabetes mellitus in first degree relative Mother Family history of colonic diverticulitis Social History Social History Smoking status: Never smoker Substance use type: does not use Living arrangements: with family Spiritual care concerns: No Comments At time of signature, I have reviewed and agree with nursing past medical, surgical, social and family history unless otherwise noted. Please see nursing chart for further information. There is no relevant family history pertinent to the presenting complaint Exam Narrative: GENERAL: Well-appearing, well-nourished, and in no acute distress. HEAD: Normocephalic, atraumatic. EYES: EOMI. No redness or drainage. Conjunctivae normal. ENT: Mucous membranes pink and moist. Nares clear. No rhinorrhea. TMs normal bilaterally. Throat very mildly erythematous without edema or exudate. Uvula midline. NECK: Normal AROM. Supple. Bilateral tonsillar lymphadenopathy. CHEST: No respiratory distress. Clear to auscultation. HEART: Regular rate and rhythm. No murmur appreciated. EXTREMITIES: Normal range of motion. No edema. SKIN: Warm, dry, no rash. Capillary refill normal. Normal skin turgor. NEURO: No focal deficits. Alert and oriented x3. Gait steady. PSYCH: Normal affect. No signs of depression or anxiety. Course Course Level of Care: Express Care Visit Vital Signs Vital signs: Vital Signs Temperature 98.5 F 03/11/25 11:48 Pulse Rate 73 03/11/25 11:48 Respiratory Rate 18 03/11/25 11:48 Blood Pressure 138/72 03/11/25 11:48 Pulse Oximetry 97 03/11/25 11:48 Oxygen Delivery Room Air 03/11/25 11:48 Temperature 98.5 F 03/11/25 11:48 Pulse Rate 73 03/11/25 11:48 Respiratory Rate 18 03/11/25 11:48 Blood Pressure 138/72 03/11/25 11:48 Pulse Oximetry 97 03/11/25 11:48 Oxygen Delivery Room Air 03/11/25 11:48 Reviewed MDM - URI/Sore Throat MDM Narrative Medical decision making narrative: 50-year-old female patient presents today with sore throat and itchy ears since last night. Denies any additional symptoms to include cough, congestion, rhinorrhea. 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 Currently rates her pain 7/10 and has tried no OTC treatment prior to arrival. Upon exam, patient is throat is slightly erythematous without edema or exudate. Remainder of exam is normal. Rapid strep negative. Culture pending. Symptoms likely viral in etiology. Discussed [id number] medication use and duration of illness. No prescription medications indicated at this time. Anticipatory guidance given. Vital signs stable. Patient agrees with plan. Differential Diagnosis Differential diagnosis: Likely upper respiratory infection, otitis media, viral infection, pharyngitis and other (Strep throat) Lab Data Attestation: I reviewed the patient's lab results. Labs: Lab Results 03/11/25 03/11/25 Range/Units 12:23 12:23 POC Grp A Strep Screen Negative Negative (Negative) Critical Care Time Critical Care Time Critical Care Time: No Discharge Plan Discharge Clinical Impression: Pharyngitis Qualifiers: Pharyngitis/tonsillitis etiology: unspecified etiology Qualified Code(s): J02.9 - Acute pharyngitis, unspecified Patient Disposition: Home Condition: Stable Instructions: Pharyngitis (ED) Additional Instructions: Your rapid strep swab was negative today at [facility]. You will be notified in a few days if the culture comes back positive for strep, and appropriate antibiotics will be called in for you at that time. Your symptoms are likely due to a viral illness, which is not treated with antibiotics. Viral symptoms can be present for up to 7-10 days. Take an anti-inflammatory such as Aleve or ibuprofen for fever or pain. Rest and stay hydrated. Follow up with your PCP in 7 days if symptoms are not improving. Go to the ER immediately if you have any difficulty breathing or swallowing. Patient Language: Albanian Prescriptions: No Action levothyroxine 100 mcg tablet 88 mcg PO DAILY semaglutide 0.25 mg or 0.5 mg (2 mg/3 mL) Pen Injector 0.25 mg SUBCUT WEEKLY Patient Comments: Friday's Rx Instructions: for 4 weeks Follow-up/Referrals: Bety,Chayo Ogden NP [Primary Care Provider, Unknown] Time of Disposition: 12:28
--- OUTSIDE RECORDS SUMMARY | 2025-03-11 12:26 | XMS_ITS | Data Portability ---
Author Organization [place] - [facility] [employer], Main Office Address [address] [place] [address] Care Team Providers Care Advanced Seal Delivery System Name Role Phone CABRERATARAN Primary Care Provider Assessment No assessment recorded. Plan of Treatment Reminders Order Date Submit Date Provider Last Modified By Organization Details Last Modified Time Details Appointments None recorded. Lab pap, IG + HR HPV 2024 025 [facility], [address], [place], [address], 5 11:42:05 TSH, serum or plasma 2024 025 [facility], [address], [place], [address], 5 12:53:27 TSH, serum or plasma 2024 025 [facility], [address], [place], [address], 5 08:57:59 estradiol, serum 2024 025 [facility], [address], [place], [address], 5 07:45:42 lh + FSH, serum 2024 025 [employer], [address], [place], [address], 5 07:45:36 progesteron e, serum 2024 025 [facility], [address], [place], [address], 5 07:45:40 lipid panel, serum 2024 025 [facility], [address], [place], [address], 5 07:45:35 hepatic function panel, serum 2024 025 [facility], [address], [place], [address], 5 07:45:38 HbA1c (hemoglobin A1c), blood 2024 025 [facility], [address], [place], [address], 5 07:45:44 CMP, serum or plasma 2024 025 [facility], [address], [place], [address], 5 07:45:37 iron + TIBC + ferritin, serum 2024 025 [facility], [address], [place], [address], 5 07:45:32 CBC w/ auto diff 2024 025 [facility], [address], [place], [address], 5 07:45:39 vitamin D, 25-hydroxy, total, serum 2024 025 [facility], [address], [place], [address], 5 07:45:43 TSH, serum or plasma 2024 025 [facility], [address], [place], [address], 5 07:45:41 urinalysis, complete 2023 [email or web address] [place] [address] ([facility]), [address] [place], [address], 4 08:23:49 urinalysis, dipstick 2023 024 [facility] [address], [place], [address], 4 13:03:44 Referral None recorded. Procedures None recorded. Surgeries None recorded. Imaging None recorded. Medication Orders compounded medication [address] [facility] [address] [facility], [address] [place] [address], [address], 5 14:06:50 compounded medication [address] [facility] [address] [facility], [address] [place] [address], [address], 5 14:06:53 compounded medication [address] [facility] [address] [facility], [address] [place] [address], [address], 5 14:07:05 Patient TargetsNo targets recorded. Patient InstructionsNo instructions recorded. Reason for Referral None Reported. Results Created Date Observation Date Name Description Value Unit Range Abnormal Flag Note LastModifiedBy Organization Detail LastModifiedTime 11/10/19 25 11/09/2024 TSH TSH 0.32 mIU/L low Refer ence Range > or = 20 Years 0.40- 4.50 Pregn lokesh Range s First trime ster 0.26- 2.66 Secon d trime ster 0.55- 2.73 Third trime ster 0.43- 2.91 NO COLLE CTION DATE RECEI DEANNA. WE HAVE USED THE DATE THE SPECI MEN WAS RECEI DEANNA BY THIS LABOR ATORY THE COLLE CTION DATE. IF THIS IS INCOR RECT, PLEAS E CONTA CT CLIEN T SERVI JUJU. PHONE NUMBE R: [phone] Not Available [facility] [address] [place], [address], 11/09/2024 12:53:27 09/17/1909/18/2023 UA/M W/RFL X CULTU RE ROUTAnthony NE specific gravity 1.020 1.005- 1.030 Not Available [facility] ([facility]) [address] [place], [address], 09/19/2023 06:20:10 09/17/19 24 09/18/2023 UA/M W/RFL X CULTU RE ROUTAnthony NE pH 5.5 5.0-7. 5 Not Available [facility] ([facility]) [address] [place], [address], 09/19/2023 06:20:10 09/17/19 24 09/18/2023 UA/M W/RFL X CULTU RE ROUTAnthony NE urine-color Yellow yellow Not Available [facility] ([facility]) [address] [place], [address], 09/19/2023 06:20:10 09/17/1909/18/2023 UA/M W/RFL X CULTU RE ROUTAnthony NE appearance Cloudy clear abnormal Not Available [facility] ([facility]) [address] [place], [address], 09/19/2023 06:20:10 09/17/19 24 09/18/2023 UA/M W/RFL X CULTU RE ROUTI NE WBC esterase Negati ve negati ve Not Available [facility] ([facility]) [address] [place], [address], 09/19/2023 06:20:10 09/17/19 24 09/18/2023 UA/M W/RFL X CULTU RE, ROUTI NE protein Negati ve negati ve/tra ce Not Available [facility] ([facility]) [address] [place], [address], 09/19/2023 06:20:10 09/17/19 24 09/18/2023 UA/M W/RFL X CULTU RE, ROUTI NE glucose Negati ve negati ve Not Available [facility] ([facility]) [address] [place], [address], 09/19/2023 06:20:10 09/17/19 24 09/18/2023 UA/M W/RFL X CULTU RE, ROUTI NE ketones Negati ve negati ve Not Available [facility] ([facility]) [address] [place], [address], 09/19/2023 06:20:10 09/17/19 24 09/18/2023 UA/M W/RFL X CULTU RE, ROUTI NE occult blood Negati ve negati ve Not Available [facility] ([facility]) [address] [place], [address], 09/19/2023 06:20:10 09/17/19 24 09/18/2023 UA/M W/RFL X CULTU RE, ROUTI NE bilirubin Negati ve negati ve Not Available [facility] ([facility]) [address] [place], [address], 09/19/2023 06:20:10 09/17/19 24 09/18/2023 UA/M W/RFL X CULTU RE, ROUTI NE urobilinogen ,semi-qn 0.2 mg/dL 0.2-1. 0 Not Available [facility] ([facility]) [address] [facility], [place], [address], 09/19/2023 06:20:10 09/17/19 24 09/18/2023 UA/M W/RFL X CULTU RE, ROUTI NE nitrite, urine Negati ve negati ve Not Available [facility] ([facility]) [address] [facility], [place], [address], 09/19/2023 06:20:10 09/17/19 24 09/18/2023 UA/M W/RFL X CULTU RE, ROUTI NE microscopic examination Commen t Micro scopi c follo ws if indic ated. Not Available [facility] ([facility]) [address] [facility], [place], [address], 09/19/2023 06:20:10 09/17/19 24 09/18/2023 UA/M W/RFL X CULTU RE, ROUTI NE microscopic examination See below: Micro scopi c was indic ated and was perfo rmed. Not Available [facility] ([facility]) [address] [facility], [place], [address], 09/19/2023 06:20:10 09/17/19 24 09/18/2023 UA/M W/RFL X CULTU RE, ROUTI NE WBC 0-5 /hpf 0 - 5 Not Available [facility] ([facility]) [address] [facility], [place], [address], 09/19/2023 06:20:10 09/17/19 24 09/18/2023 UA/M W/RFL X CULTU RE, ROUTI NE RBC 0-2 /hpf 0 - 2 Not Available [facility] ([facility]) [address] [facility], [place], [address], 09/19/2023 06:20:10 09/17/19 24 09/18/2023 UA/M W/RFL X CULTU RE, ROUTI NE epithelial cells (non renal) >10 /hpf 0 - 10 abnormal Not Available [facility] ([facility]) [address] [facility], [place], [address], 09/19/2023 06:20:10 09/17/19 24 09/18/2023 UA/M W/RFL X CULTU RE, ROUTI NE epithelial cells (renal) PERIOPERATIVE ASSISTANT Not Available [facility] ([facility]) [address] [facility], [place], [address], 09/19/2023 06:20:10 09/17/19 24 09/18/2023 UA/M W/RFL X CULTU RE, ROUTI NE casts None seen /lpf none seen Not Available [facility] ([facility]) [address] [facility], [place], [address], 09/19/2023 06:20:10 09/17/19 24 09/18/2023 UA/M W/RFL X CULTU RE, ROUTI NE cast type PERIOPERATIVE ASSISTANT Not Available [facility] ([facility]) [address] [facility], [place], [address], 09/19/2023 06:20:10 09/17/19 24 09/18/2023 UA/M W/RFL X CULTU RE, ROUTI NE crystals PERIOPERATIVE ASSISTANT Not Available [facility] ([facility]) [address] [facility], [place], [address], 09/19/2023 06:20:10 09/17/19 24 09/18/2023 UA/M W/RFL X CULTU RE, ROUTI NE crystal type PERIOPERATIVE ASSISTANT Not Available [facility] ([facility]) [address] [facility], [place], [address], 09/19/2023 06:20:10 09/17/19 24 09/18/2023 UA/M W/RFL X CULTU RE, ROUTI NE mucus threads PERIOPERATIVE ASSISTANT Not Available [facility] ([facility]) [address] [facility], [place], [address], 09/19/2023 06:20:10 09/17/19 24 09/18/2023 UA/M W/RFL X CULTU RE, ROUTI NE bacteria Modera te none seen/f ew abnormal Not Available [facility] ([facility]) [address] [facility], [place], [address], 09/19/2023 06:20:10 09/17/19 24 09/18/2023 UA/M W/RFL X CULTU RE, ROUTI NE yeast PERIOPERATIVE ASSISTANT Not Available [facility] ([facility]) [address] [facility], [place], [address], 09/19/2023 06:20:10 09/17/19 24 09/18/2023 UA/M W/RFL X CULTU RE, ROUTI NE trichomonas PERIOPERATIVE ASSISTANT Not Available [facility] ([facility]) [address] [facility], [place], [address], 09/19/2023 06:20:10 09/17/19 24 09/18/2023 UA/M W/RFL X CULTU RE, ROUTI NE comment PERIOPERATIVE ASSISTANT Not Available [facility] ([facility]) [address] [facility], [place], [address], 09/19/2023 06:20:10 09/17/19 24 09/18/2023 UA/M W/RFL X CULTU RE, ROUTI NE urinalysis reflex Commen t This speci men has refle xed to a Urine Cultu re. Not Available [facility] ([facility]) [address] [facility], [place], [address], 09/19/2023 06:20:10 09/17/1909/19/2023 UA/M W/RFL X CULTU RE, ROUTI NE urine culture, routine Final report Not Available [facility] ([facility]) [address] [facility], [place], [address], 09/19/2023 06:20:10 09/17/19 24 09/19/2023 UA/M W/RFL X CULTU RE, ROUTI NE result 1 No growth Not Available [facility] ([facility]) [address] [facility], [place], [address], 09/19/2023 06:20:10 09/17/19 24 09/17/2023 urina lysis , dipst ick Leukocytes (reference range: negative abel/ l) Negati ve Not Available [address], [place], [address], 09/17/2023 12:45:38 09/17/1909/17/2023 urina lysis , dipst ick Nitrite (reference rage: negative mg/dl) negati ve Not Available [address], [place], [address], 09/17/2023 12:45:38 09/17/19 24 09/17/2023 urina lysis , dipst ick Urobilinogen (reference range: 0.2-1 mg/dl) 0.2 Not Available [address], [place], [address], 09/17/2023 12:45:38 09/17/19 24 09/17/2023 urina lysis , dipst ick Protein (reference range: negative mg/dl) Negati ve Not Available [address], [place], [address], 09/17/2023 12:45:38 09/17/19 24 09/17/2023 urina lysis , dipst ick pH (reference range: 5-7) 6.0 Not Available [address], [place], [address], 09/17/2023 12:45:38 09/17/19 24 09/17/2023 urina lysis , dipst ick Blood (reference range: negative Nick/ l) Negati ve Not Available [address], [place], [address], 09/17/2023 12:45:38 09/17/19 24 09/17/2023 urina lysis , dipst ick Specific [place] (reference range: 1.005-1.030) 1.030 Not Available [address], [place], [address], 09/17/2023 12:45:38 09/17/19 24 09/17/2023 urina lysis , dipst ick Ketone (reference range: negative mg/dl) Negati ve Not Available [address], [place], [address], 09/17/2023 12:45:38 09/17/19 24 09/17/2023 urina lysis , dipst ick Bilirubin (reference range: negative mg/dl) Negati ve Not Available [address], [place], [address], 09/17/2023 12:45:38 09/17/19 24 09/17/2023 urina lysis , dipst ick Glucose (reference range: negative mg/dl) Negati ve Not Available [address], [place], [address], 09/17/2023 12:45:38 09/17/19 24 09/17/2023 urina lysis , dipst ick Appearance Clear Not Available [address], [place], [address], 09/17/2023 12:45:38 09/17/19 24 09/17/2023 urina lysis , dipst ick Color Yellow Not Available [address], [place], [address], 09/17/2023 12:45:38 06/05/19 25 06/06/2024 IRON, TIBC AND MIGNON TIN PANEL iron, total 73 mcg/d L 40-190 normal Not Available [address], [address], 06/06/2024 07:45:32 06/05/19 25 06/06/2024 IRON, TIBC AND MIGNON TIN PANEL iron binding capacity 277 mcg/d L_(ca lc) 250-45 0 normal Not Available [address], [address], 06/06/2024 07:45:32 06/05/19 25 06/06/2024 IRON, TIBC AND MIGNON TIN PANEL % saturation 26 %_(ca lc) 16-45 normal Not Available [address], [address], 06/06/2024 07:45:32 06/05/19 25 06/06/2024 IRON, TIBC AND MIGNON TIN PANEL ferritin 45 NG/mL 16-232 normal Not Available [address], [address], 06/06/2024 07:45:32 06/05/19 25 06/06/2024 LIPID PANEL , STAND ANGELIQUE cholesterol, total 184 mg/dL <200 normal Not Available [address], [address], 06/06/2024 07:45:35 06/05/19 25 06/06/2024 LIPID PANEL , STAND ANGELIQUE HDL cholesterol 51 mg/dL > or = 50 normal Not Available [address], [address], 06/06/2024 07:45:35 06/05/19 25 06/06/2024 LIPID PANEL , STAND ANGELIQUE triglyceride s 64 mg/dL <150 normal Not Available [facility] [address] [place], [address], 06/06/2024 07:45:35 06/05/1906/06/2024 LIPID PANEL , STAND ANGELIQUE LDL-choleste rol 117 mg/dL _(bandar c) high Refer ence range : <100 Tiara able range <100 mg/dL for prima ry preve ntion ; <70 mg/dL for patie nts with CHD or diabe tic patie nts with > or = 2 CHD risk facto rs. LDL-C is now calcu lated using the Isabelle n-Hop kins calcu briseida n, which is a valid ated novel sumayao brent ventura than the Fried juliana equat ion in the estim ation of LDL-C . Isabelle venegas SS et al. WEN. 2013; 310(1 9): 2061- 2068 (http ://ed ucati on.Cloze raymondGolden Hill Paugussetts. com/f aq/FA Q164) Not Available [facility] [address], [place], [address], 06/06/2024 07:45:35 06/05/1906/06/2024 LIPID PANEL , STAND ANGELIQUE chol/HDLC ratio 3.6 (calc ) <5.0 normal Not Available [facility] [address] [place], [address], 06/06/2024 07:45:35 06/05/1906/06/2024 LIPID PANEL , STAND ANGELIQUE non HDL cholesterol 133 mg/dL _(bandar c) <130 high For patie nts with diabe corrine plus 1 major ASCVD risk facto r, treat ing to a non-H DL-C goal of <100 mg/dL (LDL- C of <70 mg/dL ) is consi yonisd a thera peutanthony c optio n. Not Available [facility] [address] [place], [address], 06/06/2024 07:45:35 06/05/1906/06/2024 FSH AND LH FSH 30.7 mIU/m L normal Refer ence Range Folli cular Phase 2.5-1 0.2 Mid-c ycle Peak 3.1-1 7.7 Lutea l Phase 1.5- 9.1 Postm enopa usal 23.0- 116.3 Not Available [address], [address], 06/06/2024 07:45:36 06/05/19 25 06/06/2024 FSH AND LH LH 29.1 mIU/m L normal Refer ence Range Folli cular Phase 1.9-1 2.5 Mid-C ycle Peak 8.7-7 6.3 Lutea l Phase 0.5-1 6.9 Postm enopa usal 10.0- 54.7 Not Available [address], [address], 06/06/2024 07:45:36 06/05/19 25 06/06/2024 COMPR EHENS DERA METAB OLIC PANEL glucose 83 mg/dL 65-99 normal Fasti ng refer ence inter tonya Not Available [address], [address], 06/06/2024 07:45:37 06/05/19 25 06/06/2024 COMPR EHENS DREA METAB OLIC PANEL urea nitrogen (BUN) 12 mg/dL 7-25 normal Not Available [address], [address], 06/06/2024 07:45:37 06/05/19 25 06/06/2024 COMPR EHENS DREA METAB OLIC PANEL creatinine 0.85 mg/dL 0.50-0 .99 normal Not Available [address], [address], 06/06/2024 07:45:37 06/05/19 25 06/06/2024 COMPR EHENS DREA METAB OLIC PANEL eGFR 84 mL/mi n/1.7 3m2 > or = 60 normal Not Available [address], [address], 06/06/2024 07:45:37 06/05/19 25 06/06/2024 COMPR EHENS DREA METAB OLIC PANEL BUN/creatini ne ratio SEE NOTE: (calc ) 6-22 Not Repor germaine: BUN and Creat inine are withi n refer ence range . Not Available [address], [address], 06/06/2024 07:45:37 06/05/19 25 06/06/2024 COMPR EHENS DREA METAB OLIC PANEL sodium 138 mmol/ L 135-14 6 normal Not Available [address], [address], 06/06/2024 07:45:37 06/05/19 25 06/06/2024 COMPR EHENS DREA METAB OLIC PANEL potassium 4.6 mmol/ L 3.5-5. 3 normal Not Available [address], [address], 06/06/2024 07:45:37 06/05/19 25 06/06/2024 COMPR EHENS DREA METAB OLIC PANEL chloride 106 mmol/ L 98-110 normal Not Available [address], [address], 06/06/2024 07:45:37 06/05/19 25 06/06/2024 COMPR EHENS DREA METAB OLIC PANEL carbon dioxide 27 mmol/ L 20-32 normal Not Available [address], [address], 06/06/2024 07:45:37 06/05/19 25 06/06/2024 COMPR EHENS DREA METAB OLIC PANEL calcium 9.1 mg/dL 8.6-10 .2 normal Not Available [address], [address], 06/06/2024 07:45:37 06/05/19 25 06/06/2024 COMPR EHENS DREA METAB OLIC PANEL protein, total 6.7 g/dL 6.1-8. 1 normal Not Available [address], [address], 06/06/2024 07:45:37 06/05/19 25 06/06/2024 COMPR EHENS DREA METAB OLIC PANEL albumin 4.3 g/dL 3.6-5. 1 normal Not Available [address], [address], 06/06/2024 07:45:37 06/05/19 25 06/06/2024 COMPR EHENS DREA METAB OLIC PANEL globulin 2.4 g/dL_ (calc ) 1.9-3. 7 normal Not Available [address], [address], 06/06/2024 07:45:37 06/05/1906/06/2024 COMPR EHENS DREA METAB OLIC PANEL albumin/glob ulin ratio 1.8 (calc ) 1.0-2. 5 normal Not Available [address], [address], 06/06/2024 07:45:37 06/05/1906/06/2024 COMPR EHENS DREA METAB OLIC PANEL bilirubin, total 1.1 mg/dL 0.2-1. 2 normal Not Available [address], [address], 06/06/2024 07:45:37 06/05/19 25 06/06/2024 COMPR EHENS DREA METAB OLIC PANEL alkaline phosphatase 59 U/L 31-125 normal Not Available [address] [address] [place], [address], 06/06/2024 07:45:37 06/05/19 25 06/06/2024 COMPR EHENS DREA METAB OLIC PANEL AST 15 U/L 10-35 normal Not Available [address], [address], 06/06/2024 07:45:37 06/05/19 25 06/06/2024 COMPR EHENS DREA METAB OLIC PANEL ALT 18 U/L 6-29 normal Not Available [address], [address], 06/06/2024 07:45:37 06/05/19 25 06/06/2024 HEPAT IC FUNCT ION PANEL protein, total 6.7 g/dL 6.1-8. 1 normal Not Available [address], [address], 06/06/2024 07:45:38 06/05/19 25 06/06/2024 HEPAT IC FUNCT ION PANEL albumin 4.3 g/dL 3.6-5. 1 normal Not Available [address], [address], 06/06/2024 07:45:38 06/05/19 25 06/06/2024 HEPAT IC FUNCT ION PANEL globulin 2.4 g/dL_ (calc ) 1.9-3. 7 normal Not Available [address], [address], 06/06/2024 07:45:38 06/05/19 25 06/06/2024 HEPAT IC FUNCT ION PANEL albumin/glob ulin ratio 1.8 (calc ) 1.0-2. 5 normal Not Available [address], [address], 06/06/2024 07:45:38 06/05/19 25 06/06/2024 HEPAT IC FUNCT ION PANEL bilirubin, total 1.1 mg/dL 0.2-1. 2 normal Not Available [facility] [address], [address], 06/06/2024 07:45:38 06/05/19 25 06/06/2024 HEPAT IC FUNCT ION PANEL bilirubin, direct 0.2 mg/dL < or = 0.2 normal Not Available [address], [address], 06/06/2024 07:45:38 06/05/19 25 06/06/2024 HEPAT IC FUNCT ION PANEL bilirubin, indirect 0.9 mg/dL _(bandar c) 0.2-1. 2 normal Not Available [address], [address], 06/06/2024 07:45:38 06/05/19 25 06/06/2024 HEPAT IC FUNCT ION PANEL alkaline phosphatase 59 U/L 31-125 normal Not Available [address], [address], 06/06/2024 07:45:38 06/05/19 25 06/06/2024 HEPAT IC FUNCT ION PANEL AST 15 U/L 10-35 normal Not Available [address], [address], 06/06/2024 07:45:38 06/05/19 25 06/06/2024 HEPAT IC FUNCT ION PANEL ALT 18 U/L 6-29 normal Not Available [address], [address], 06/06/2024 07:45:38 06/05/19 25 06/06/2024 CBC (INCL UDES DIFF/ PLT) white blood cell count 6.1 thous and/u L 3.8-10 .8 normal Not Available [address], [address], 06/06/2024 07:45:39 06/05/19 25 06/06/2024 CBC (INCL UDES DIFF/ PLT) red blood cell count 5.09 kodi on/uL 3.80-5 .10 normal Not Available [address], [address], 06/06/2024 07:45:39 06/05/1906/06/2024 CBC (INCL UDES DIFF/ PLT) hemoglobin 13.7 g/dL 11.7-1 5.5 normal Not Available [facility] [address], [address], 06/06/2024 07:45:39 06/05/1906/06/2024 CBC (INCL UDES DIFF/ PLT) hematocrit 43.1 % 35.0-4 5.0 normal Not Available [address], [address], 06/06/2024 07:45:39 06/05/1906/06/2024 CBC (INCL UDES DIFF/ PLT) MCV 84.7 fL 80.0-1 00.0 normal Not Available [facility] [address], [address], 06/06/2024 07:45:39 06/05/1906/06/2024 CBC (INCL UDES DIFF/ PLT) MCH 26.9 pg 27.0-3 3.0 low Not Available [address], [address], 06/06/2024 07:45:39 06/05/1906/06/2024 CBC (INCL UDES DIFF/ PLT) MCHC 31.8 g/dL 32.0-3 6.0 low For adult s, a sligh t decre ase in the calcu lated MCHC value (in the range of 30 to 32 g/dL) is most likel y not clini mala signi jaky t; dagmar er, it shoul d be inter prete d with cauti on in corre latio n with other red cell nikhil eters and the patie nt's clini bandar condi tion. Not Available [address] [place], [address], 06/06/2024 07:45:39 06/05/1906/06/2024 CBC (INCL UDES DIFF/ PLT) RDW 13.2 % 11.0-1 5.0 normal Not Available [address], [address], 06/06/2024 07:45:39 06/05/1906/06/2024 CBC (INCL UDES DIFF/ PLT) platelet count 327 thous and/u L 140-40 0 normal Not Available [address], [address], 06/06/2024 07:45:39 06/05/19 25 06/06/2024 CBC (INCL UDES DIFF/ PLT) MPV 10.7 fL 7.5-12 .5 normal Not Available [address], [address], 06/06/2024 07:45:39 06/05/19 25 06/06/2024 CBC (INCL UDES DIFF/ PLT) absolute neutrophils 4087 cells /uL 1500-7 800 normal Not Available [address], [address], 06/06/2024 07:45:39 06/05/19 25 06/06/2024 CBC (INCL UDES DIFF/ PLT) absolute lymphocytes 1434 cells /uL 850-39 00 normal Not Available [facility] [address], [address], 06/06/2024 07:45:39 06/05/19 25 06/06/2024 CBC (INCL UDES DIFF/ PLT) absolute monocytes 378 cells /uL 200-95 0 normal Not Available [facility] [address], [address], 06/06/2024 07:45:39 06/05/19 25 06/06/2024 CBC (INCL UDES DIFF/ PLT) absolute eosinophils 159 cells /uL 15-500 normal Not Available [address], [address], 06/06/2024 07:45:39 06/05/19 25 06/06/2024 CBC (INCL UDES DIFF/ PLT) absolute basophils 43 cells /uL 0-200 normal Not Available [facility] [address], [address], 06/06/2024 07:45:39 06/05/1906/06/2024 CBC (INCL UDES DIFF/ PLT) neutrophils 67 % normal Not Available [facility] [address], [address], 06/06/2024 07:45:39 06/05/1906/06/2024 CBC (INCL UDES DIFF/ PLT) lymphocytes 23.5 % normal Not Available [facility] [address], [address], 06/06/2024 07:45:39 06/05/1906/06/2024 CBC (INCL UDES DIFF/ PLT) monocytes 6.2 % normal Not Available [facility] [address], [address], 06/06/2024 07:45:39 06/05/1906/06/2024 CBC (INCL UDES DIFF/ PLT) eosinophils 2.6 % normal Not Available [facility] [address], [address], 06/06/2024 07:45:39 06/05/1906/06/2024 CBC (INCL UDES DIFF/ PLT) basophils 0.7 % normal Not Available [facility] [address], [address], 06/06/2024 07:45:39 06/05/1906/06/2024 PROGE STERO NE progesterone <0.5 NG/mL normal Refer ence Range s Femal e Folli cular Phase < 1.0 Lutea l Phase 2.6-2 1.5 Post menop ausal < 0.5 Pregn lokesh 1st Trime ster 4.1-3 4.0 2nd Trime ster 24.0- 76.0 3rd Trime ster 52.0- 302.0 Not Available [facility] [address] [place], [address], 06/06/2024 07:45:40 06/05/19 25 06/06/2024 TSH TSH 0.03 mIU/L low Refer ence Range > or = 20 Years 0.40- 4.50 Pregn lokesh Range s First trime ster 0.26- 2.66 Secon d trime ster 0.55- 2.73 Third trime ster 0.43- 2.91 Not Available [facility] [address] [place], [address], 06/06/2024 07:45:41 06/05/19 25 06/06/2024 ESTRA DIOL estradiol 100 pg/mL normal Refer ence Range Folli cular Phase : 19-14 4 Mid-C ycle: 64-35 7 Lutea l Phase : 56-21 4 Postm enopa usal: < or = 31 Refer ence range estab lishe d on post- puber christal patie nt popul ation . No pre-p ubert al refer ence range estab lishe d using this assay . For any patie nts for whom low Estra diol level s are antic ipate d (e.g. males , pre-p ubert al child pamela and hypog onada l/pos t-men opaus al femal es), the [facility] Estra diol, Ultra sensi tive, LCMSM S assay is recom dori d (orde r code 73762 ). Pleanibal e note: patie nts being treat ed with the drug fulve stran t (Fasl odex( R)) have demon strat ed signi fican t inter feren ce in immun oassa y metho ds for estra diol measu remen t. The cross react ivity could lead to false ly eleva germaine estra diol test resul ts leadi ng to an inapp ropri ate clini bandar asses sment of estro gen statu s. [facility] order code [id number] -Estr adiol , Ultra sensi tive LC/MS /MS demon strat es negli gible cross react ivity with fulve stran t. Not Available [facility] [address] [place], [address], 06/06/2024 07:45:42 06/05/19 25 06/06/2024 VITAM IN D,25- OH,TO CHRISTAL,I A vitamin D,25-oh,tota l,ia 43 NG/mL 30-100 normal Vitam in D Statu s 25-OH Vitam in D: Defic iency : <20 ng/mL Insuf ficie ncy: 20 - 29 ng/mL Optim al: > or = 30 ng/mL For 25-OH Vitam in D testi ng on patie nts on D2-parrish pplem entat ion and patie nts for whom quant itati on of D2 and D3 fract ions is requi red, the [facility] Ass[facility] eD(TM ) 25-OH VIT D, (D2,D 3), LC/MS /MS is recom dori d: order code [id number] (gianluca ents >2yrs ). See Note 1 Note 1 For addit ional infor cari cruz e refer to http: //manuel Spring stDia gnost ics.c om/fa q/FAQ 199 (This link is being provi ded for infor cristóbal baker/ educa ulices l purpo ses only. ) Not Available [facility] [address] [place], [address], 06/06/2024 07:45:43 06/05/19 25 06/06/2024 HEMOG LOBIN A1C hemoglobin A1C 5.4 %_of_ total _HGB <5.7 normal For the purpo se of scree marlo for the prese nce of diabe corrine: <5.7% Consi stent with the absen ce of diabe corrine 5.7-6 .4% Consi stent with incre ased risk for diabe corrine (pred iabet es) > or =6.5% Consi stent with diabe corrine This assay resul t is consi stent with a decre ased risk of diabe corrine. Curre ntly, no conse nsus exist s regnaomi cha use of hemog lobin A1c for diagn osis of diabe corrine in child pamela. Accor ding to Ameri can Diabe corrine Assoc iatio n (ADA) guide lines , hemog lobin A1c <7.0% repre sents optim al contr ol in non-p regna nt diabe tic patie nts. Diffe rent metri cs may apply to speci fic patie nt popul ation s. Stand ards of Medic al Care in Diabe corrine(A DA). Not Available [facility] [address] [address] [place], [address], 06/06/2024 07:45:44 09/19/1909/19/2024 TSH W/REF OZZY TO FT4 TSH w/reflex to FT4 0.03 mIU/L low Refer ence Range > or = 20 Years 0.40- 4.50 Pregn lokesh Range s First trime ster 0.26- 2.66 Secon d trime ster 0.55- 2.73 Third trime ster 0.43- 2.91 Not Available [facility] [address] [address] [place], [address], 09/19/2024 09:08:20 09/19/1909/19/2024 T4, FREE T4, free 1.4 NG/dL 0.8-1. 8 normal Not Available [facility] [address] [place], [address], 09/19/2024 09:08:22 12/02/19 25 12/06/2024 THINP REP TIS PAP AND HR HPV DNA clinical information: normal None given Not Available [facility] [address] [address] [place], [address], 12/06/2024 11:42:05 12/02/19 25 12/06/2024 THINP REP TIS PAP AND HR HPV DNA LMP: normal NONE GIVEN Not Available [address] [place], [address], 12/06/2024 11:42:05 12/02/19 25 12/06/2024 THINP REP TIS PAP AND HR HPV DNA prev. Pap: normal NONE GIVEN Not Available [address], [address], 12/06/2024 11:42:05 12/02/1912/06/2024 THINP REP TIS PAP AND HR HPV DNA prev. BX: normal NONE GIVEN Not Available [address], [address], 12/06/2024 11:42:05 12/02/19 25 12/06/2024 THINP REP TIS PAP AND HR HPV DNA source: normal None given Not Available [address], [address], 12/06/2024 11:42:05 12/02/1912/06/2024 THINP REP TIS PAP AND HR HPV DNA statement of adequacy: normal Satis facto ry for evalu ation . Endoc ervic al/tr ansfo rmati on zone compo nent prese nt. Age and/o r menst rual statu s not provi ded Not Available [address], [address], 12/06/2024 11:42:05 12/02/1912/06/2024 THINP REP TIS PAP AND HR HPV DNA interpretati on/result: normal Cytol ogy Resul ts: Negat drea for intra epith elial lesio n or malig venancio . Not Available [address], [address], 12/06/2024 11:42:05 12/02/19 25 12/06/2024 THINP REP TIS PAP AND HR HPV DNA comment: normal This Pap test has been evalu ated with the ThinP rep(R ) Imagi ng Syste m. Not Available [facility] [address] [place], [address], 12/06/2024 11:42:05 12/02/19 25 12/06/2024 THINP REP TIS PAP AND HR HPV DNA cytotechnolo gist: normal FCB, CT( CP) CT scree marlo locat ion: [facility], [address] [facility] [address], [place] [address] Labor atory Direc tor: BEATRIZ Del Valle MD, CLIA: [id number] Not Available [address] [address] [place], [address], 12/06/2024 11:42:05 12/02/19 25 12/06/2024 THINP REP TIS PAP AND HR HPV DNA pathologist: normal Laisha Paez MD, Board Certi fied in Cytop athol ogy and Anato trent Patho logy (elec troni c signa ture) Patho logis t Relea se Date/ Time: 12/06 10:02 AM Not Available [address] [address] [address], [place], [address], 12/06/2024 11:42:05 12/02/19 25 12/06/2024 THINP REP TIS PAP AND HR HPV DNA comment EXPLA NATOR Y NOTE: The Pap is a scree marlo test for cervi bandar cance r. It is not a diagn ostic test and is subje ct to false negat drea and false posit drea resul ts. It is most relia ble when a satis facto ry sampl e, regul sarah obtai estephania, is submi tted with relev ant clini bandar findi ngs and histo ry, and when the Pap resul t is evalu ated along with histo genoveva and curre nt clini bandar infor matio n. Not Available [address] [address] [place], [address], 12/06/2024 11:42:05 12/02/1912/06/2024 THINP REP TIS PAP AND HR HPV DNA HPV DNA, high risk, cervical NOT DETECT ED not detect ed normal Not Detec germaine High Risk HPV types (16,1 8,31, 33,35 ,39,4 5,51, 52, 56,58 ,59,6 6,68) were not detec germaine. Other HPV types which cause anoge nital lesio ns may be prese nt. The signi fican ce of the other types of HPV in malig nant proce sses has not been estab rafiq gleason y: Real Time PCR Not Available [facility] [address] [address] [place], [address], 12/06/2024 11:42:05 12/11/1912/11/2024 TSH TSH 0.62 mIU/L normal Refer ence Range > or = 20 Years 0.40- 4.50 Pregn lokesh Range s First trime ster 0.26- 2.66 Secon d trime ster 0.55- 2.73 Third trime ster 0.43- 2.91 Not Available [facility] [address] [address] [place], [address], 12/11/2024 04:28:56 12/11/1912/11/2024 VITAM IN B12 vitamin B12 297 pg/mL 200-11 00 normal Pleas e Note: Altho ugh the refer ence range for vitam in B12 is 200-1 100 pg/mL , it has been repor germaine that betwe en 5 and 10% of patie nts with value s betwe en 200 and 400 pg/mL may exper ience neuro psych iatri c and hemat ologi c abnor malit ies due to occul t B12 defic iency ; less than 1% of patie nts with value s above 400 pg/mL will have sympt oms. Not Available [facility] [address] [address] [place], [address], 12/11/2024 04:28:58 08/28/19 24 08/26/2023 US, pelvi s, trans abdom inal + trans vagin al No observ ation record ed. [email or web address] [address], [place], [address], 10/14/2023 09:55:14 01/22/20 24 01/22/2024 MAMMO , scree marlo, digit al, bilat eral No observ ation record ed. [address], [place], [address], 01/27/2024 13:46:27 01/22/20 24 01/22/2024 MAMMO , scree marlo, digit al, bilat eral No observ ation record ed. [place] [id number] [facility] [address], [place], [address], 01/27/2024 13:46:28 Result Notes None recorded. Problems Name Problem SNOMED Code Status Onset Date Resolution Date Notes Provider Name and Address Organization Details Recorded Time Thyroid function tests abnormal 491420592 Active 2017 Not Available [facility] 3 10:22:43 Vitamin D deficiency 75939233 Active 2017 Not Available [facility] 3 10:22:43 Increased frequency of urination 067701647 Active 2022 Not Available [facility] 3 10:22:43 Hypothyroi dism 87613594 Active 2022 Not Available [facility] 3 10:22:43 Fatigue 23515286 Active 2022 FAM Michael [address], [facility] [address], [place], [address] , [employer] [facility] 5 16:24:53 Vaginitis 52432075 Active 2022 Dominga Anderson MD [address], [address], [place], [address] , [employer] [facility] [employer] 3 10:46:12 Cough 01543964 Active 2022 Dominga Anderson MD [address], [address], [place], [address] , [employer] 3 10:46:18 Amenorrhea 66849227 Active 2023 Dominga Anderson MD [address], [address], [place], [address] , [employer] 4 10:46:13 Hyperlipid emia 98939024 Active 2023 Dominga Anderson MD [address], [address], [place], [address] , [employer] [facility] [employer] 4 10:47:54 Hyperglyce sheela 60672501 Active 2023 Dominga Anderson MD [address], [address], [place], [address] , [employer] [facility] [employer] 4 10:48:05 Dark yellow urine 186145698 Active 2023 Dominga Anderson MD [address], [address], [place], [address] , [employer] [facility] 4 12:45:07 Urine looks dark 80099594 Active 2023 Dominga Anderson MD [address], [address], [place], [address] , [employer] [facility] [employer] [facility] 4 12:45:14 Prediabete s 877526526 Active 2023 JEREMIAH Zhou [address], [address], [place], [address] , [employer] 4 14:25:24 Cramp in lower limb 232539824 Active 2024 FAM Micheal [address], [address], [place], [address] , [employer] 5 16:42:52 Menopausal flushing 582115656 Active 2024 FAM Michael [address], [address], [place], [address] , Lela 11:23:57 Hyperthyro idism 14101807 Active 2024 FAM Michael [address] [facility], [facility] [address], [place], [address] , [employer] 5 15:37:53 Obese class I 4042451917545 07 Active 2024 FAM Michael [address] [facility], [facility] [address], [place], [address] , Lela 09:46:18 Problem Notes None recorded. Medical Equipment None Reported. Allergies No known drug allergies Medications Name Sig Start Date Stop Date Status Note LastModified by Organization Details LastModified Time compounded medication 0.25 mg sc qweek x 4 weeks 12/01 completed Not Available Not Available Not Available compounded medication 0.25 mg sc qweek x 4 weeks 12/01 completed Not Available Not Available Not Available compounded medication inject 2.5mg (60 units) every week 12/01 completed Not Available Not Available Not Available compounded medication inject 2.5mg (60 units) every week 12/01 completed Not Available Not Available Not Available compounded medication 0.5 mg sc qweek x 4 weeks 12/01 completed Not Available Not Available Not Available compounded medication 0.5 mg sc qweek x 4 weeks 12/01 completed Not Available Not Available Not Available compounded medication 0.25 mg sc qweek x 4 weeks 12/01 completed Not Available Not Available Not Available Prescriptio n - Prior Authorizati on Request active Not Available Not Available N ot Available c-semagluti de 2.5mg/ml inject (60 units on a syringe) subcutane ously once weekly 12/01 completed Not Available Not Available Not Available fluconazole 150 mg tablet TAKE ONE TABLET BY MOUTH A ONE-TIME DOSE 08/11 completed Not Available Not Available Not Available prednisone 20 mg tablet TAKE 2 TABLETS BY MOUTH ONCE DAILY FOR 5 DAYS 08/11 completed Not Available Not Available Not Available topiramate 25 mg tablet TAKE 2 TABLETS BY MOUTH ONCE DAILY 08/06 completed Not Available Not Available Not Available phentermine 37.5 mg tablet TAKE 1 TABLET BY MOUTH ONCE DAILY 06/03 completed Not Available Not Available Not Available acetaminoph en 300 mg-codeine 30 mg tablet 12/30 completed Not Available Not Available Not Available sulfamethox azole 800 mg-trimetho prim 160 mg tablet Take 1 tablet every 12 hours by oral route for 3 days. 08/06 completed Not Available Not Available Not Available levothyroxi ne 75 mcg tablet TAKE 1 TABLET BY MOUTH ONCE DAILY IN THE MORNING active Not Available Not Available No t Available cefadroxil 500 mg capsule TAKE 1 CAPSULE BY MOUTH TWICE DAILY FOR 7 DAYS 08/06 completed Not Available Not Available Not Available levothyroxi ne 100 mcg tablet Take 1 tablet by mouth once daily 11/08 completed Not Available Not Available Not Available levothyroxi ne 88 mcg tablet Take 1 tablet by mouth once daily 12/01 completed Not Available Not Available Not Available ofloxacin 0.3 % ear drops INSTILL 10 DROPS INTO EACH EAR EVERY 12 HOURS 08/11 completed Not Available Not Available Not Available amoxicillin 875 mg tablet TAKE 1 TABLET BY MOUTH EVERY 12 HOURS 06/03 completed Not Available Not Available Not Available benzonatate 100 mg capsule TAKE 1 CAPSULE BY MOUTH EVERY 8 HOURS NEEDED 07/05 completed Not Available Not Available Not Available levothyroxi ne 50 mcg tablet TAKE 1 TABLET BY MOUTH ONCE DAILY 08/12 completed Not Available Not Available Not Available cephalexin 500 mg capsule TAKE 1 CAPSULE BY MOUTH 4 TIMES DAILY active Not Available Not Available No t Available triamcinolo ne acetonide 0.1 % topical ointment APPLY OINTMENT TOPICALLY TWICE DAILY NEEDED FOR IRRITATIO N OR RASH 08/11 completed Not Available Not Available Not Available ergocalcife rol (vitamin D2) 1,250 mcg (50,000 unit) capsule TAKE 1 CAPSULE BY MOUTH ONCE A WEEK 06/03 completed Not Available Not Available Not Available methylpredn isolone 4 mg tablets in a dose pack TAKE BY MOUTH DIRECTED ON INSIDE OF PACKAGE 11/08 completed Not Available Not Available Not Available albuterol sulfate HFA 90 mcg/actuati on aerosol inhaler Inhale 2 puffs every 4 hours by inhalatio n route. 08/11 completed Not Available Not Available Not Available ondansetron 4 mg disintegrat ing tablet DISSOLVE 1 TABLET IN MOUTH EVERY 6 HOURS NEEDED FOR NAUSEA active Not Available Not Available No t Available fluticasone propionate 50 mcg/actuati on nasal spray,suspe nsion USE 2 SPRAY(S) IN EACH NOSTRIL ONCE DAILY FOR 14 DAYS 08/11 completed Not Available Not Available Not Available amoxicillin 875 mg-potassiu m clavulanate 125 mg tablet TAKE 1 TABLET BY MOUTH EVERY 12 HOURS FOR 10 DAYS 11/08 completed Not Available Not Available Not Available oxycodone 5 mg tablet TAKE 1 TABLET BY MOUTH EVERY 6 HOURS NEEDED FOR PAIN active Not Available Not Available No t Available Trulicity 0.75 mg/0.5 mL subcutaneou s pen injector Inject 0.5 mL every week by subcutane ous route as directed for 28 days. 06/03 completed Not Available Not Available Not Available Ozempic 0.25 mg or 0.5 mg (2 mg/3 mL) subcutaneou s pen injector Inject by subcutane ous route for 28 days. active Not Available Not Available No t Available Vitals Date Recorded Body height Body mass index (BMI) Body weight Body temperature Heart rate Oxygen saturation Oxygen saturation in Arterial blood by Pulse oximetry Systolic And Diastolic Provider Name and Address Organization Details Last Updated DateTime 157.48 cm 32 kg/m2 37253.6 6 g 97.9 [degF] 79 /min 98 % 98 % 118/82 mm[Hg] Gary Mclean RN [place] - [place] [employer] [facility] 16:30:47 Date Recorded Body mass index (BMI) Body weight Provider Name and Address Organization Details Last Updated DateTime 07/26/2024 30.4 kg/m2 77957.33 g FAM Michael [address] [facility], [facility] [address], [place], [address], [facility] [employer] [facility] 07/26/2024 11:39:17 Date Recorded Body height Body temperature Heart rate Oxygen saturation Oxygen saturation in Arterial blood by Pulse oximetry Systolic And Diastolic Provider Name and Address Organization Details Last Updated DateTime 5 157.48 cm 98.2 [degF] 82 /min 98 % 98 % 138/80 mm[Hg] Gary Mclean RN [facility] [employer] [facility] 5 11:20:36 Date Recorded Body weight Body mass index (BMI) Body height Body temperature Heart rate Oxygen saturation Oxygen saturation in Arterial blood by Pulse oximetry Systolic And Diastolic Provider Name and Address Organization Details Last Updated DateTime 4 82075.3 3 g 35.3 kg/m2 157.48 cm 98.4 [degF] 82 /min 98 % 98 % 148/94 mm[Hg] Dorita Cross RN [facility] [employer] [facility] 4 12:25:02 Date Recorded Body height Body mass index (BMI) Body weight Body temperature Heart rate Oxygen saturation Oxygen saturation in Arterial blood by Pulse oximetry Systolic And Diastolic Provider Name and Address Organization Details Last Updated DateTime 5 157.48 cm 31.8 kg/m2 73973.0 7 g 97.9 [degF] 76 /min 97 % 97 % 120/80 mm[Hg] LEELA Martinez [facility] [employer] [facility] 5 15:17:18 Date Recorded Body height Body mass index (BMI) Body weight Body temperature Heart rate Oxygen saturation Oxygen saturation in Arterial blood by Pulse oximetry Systolic And Diastolic Provider Name and Address Organization Details Last Updated DateTime 5 157.48 cm 32.4 kg/m2 56913.8 5 g 98.7 [degF] 80 /min 98 % 98 % 140/82 mm[Hg] LEELA Martinez [facility] [employer] [facility] 5 14:09:25 Social History Question Answer Notes LastModified by Organizat ion Details LastModified Time Tobacco Smoking Status Never Smoker Dominga Anderson MD [address] [facility], [facility] [address], [place], [address], [place] [facility] 08/12/2023 10:37:23 What Is Your Level Of Caffeine Consumption? Occasional Information not available 11/08/2024 In The 14 Days Before Symptom Onset, Have You Had Close Contact With A Laboratory-confir med COVID-19 While That Case Was Ill? No Information not available 11/08/2024 In The 14 Days Before Symptom Onset, Have You Had Close Contact With A Person Who Is Under Investigation For COVID-19 While That Person Was Ill? No Information not available 11/08/2024 What Type Of Diet Are You Following? REGULAR Information not available 11/08/2024 Do You Use Insect Repellent Routinely? Yes Information not available 11/08/2024 Where Do You Live? [facility] Information not available 11/08/2024 What Was The Date Of Your Most Recent Tobacco Screening? 11/08/2024 Information not available 11/08/2024 How Many Children Do You Have? 2 Information not available 11/08/2024 Do You Have Any Pets? Yes Information not available 11/08/2024 What Is Your Relationship Status? Information not available 11/08/2024 Do You Use Your Seat Belt Or Car Seat Routinely? Yes Information not available 11/08/2024 Do You Have Smoke And Carbon Monoxide Detectors In Your Home? Yes Information not available 11/08/2024 Are There Any Smokers In Your House? No Information not available 11/08/2024 Do You Participate In Social Media? Yes Information not available 11/08/2024 Do You Use Sunscreen Routinely? Yes Information not available 11/08/2024 Have You Recently Traveled Abroad? Yes Information not available 11/08/2024 Do You Have Any Dietary Restrictions? No Information not available 11/08/2024 Sex: Unknown Functional Status Question Answer Note LastModified by Organizat ion Details LastModified Time Do you use any illicit or recreational drugs? No Information not available 11/08/2024 What is your level of alcohol consumption? Occasional Information not available 11/08/2024 Are you currently employed? 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 Moderate Information not available 11/08/2024 Mental Status Question Answer Note LastModified by Organization D etails LastModified Time Do you feel stressed (tense, restless, nervous, or anxious, or unable to sleep at night)? [id number] Information not available 11/08/2024 Family History Relationship Description Onset Age of this Age Resolved Age Notes LastModified by Organization Details LastModified Time Father Essential hypertension [email or web address] Not available 10:36:49 Mother Essential hypertension [email or web address] Not available 10:36:50 Paternal Grandmother Malignant neoplasm of ovary [email or web address] Not available 2023 10:37:33 Notes:Father diabetic after pancreatic injury Medical History No medical history recorded. Gynecological History Statement/Question Response Date of LMP 05/26/2024 Obstetrics History GPAL:G 2 P 2 0 0 2 Type Value Full Term 2 Living 2 Total 2 Immunizations Vaccine Type Date Status Note Provider Nam e and Address Organization Details Recorded Time Tdap 11/08/2024 completed LEELA Martinez, [place] - [facility] [employer] [facility] 11/08/2024 17:10:27 Past Encounters Encounter ID Performer Location Encounter Start Date Encounter Closed Date Diagnosis/Indication Diagnosis SNOMED-CT Code Diagnosis ICD10 Code Diagnosis IMO Codes Diagnosis Note [id number] Dominga Anderson MD [facility] Primary Care [facility] [address] [place] [address] 01/02/2021 00:00:00 01/22/2021 20:10:32 [id number] Dominga Anderson MD [facility] Primary Care [facility] [address] [place] [address] 07/05/2021 00:00:00 07/22/2021 20:40:09 [id number] Dominga Anderson MD [facility] Primary Care [place] [address] [facility] [address] [place] [address] 08/01/2021 00:00:00 08/22/2021 10:17:22 [id number] Dominga Anderson MD [facility] Primary Care [place] [address] [facility] [address] [place] [address] 06/03/2022 00:00:00 06/04/2022 13:16:27 [id number] Dominga Anderson MD [facility] Primary Care [place] [address] [facility] [address] [place] [address] 08/06/2022 16:32:26 08/06/2022 17:17:10 Adult health examination 589759663 Z00.00 Z13.220 Z13.1 Recommend yearly flu vaccineShi ngles vaccine age 51Mammogra m repeat is due ap up to date-dylan l 2Colo noscopy referral given Dietary ma nagement surveillance 384841249 Z71.3 continue phentermin econsider saxenda vs wegovy Hypothyroidism 06341363 E03.9 recheck TSHplan to adjust levothyrox ine to goal TSH 0.2-2 Vitamin D deficiency 347 61922 E55.9 Fatigue 05861192 R53.83 Screening for malignant neoplasm of colon 962276693 Z12.11 [id number] Dominga Anderson MD [facility] Primary Care [place] [address] [facility] [address] [place] [address] 08/12/2023 10:25:32 08/12/2023 11:00:50 Adult health examination 590792923 Z00.00 Z13.220 Z13.1 Recommend yearly flu vaccineRec ommend covid boosterShi ngles vaccine age 51Mammogra m repeat is due 3Pap up to date-dylan l 2Colo noscopy referral givenCheck fasting labs Screening for malignant neoplasm of colon 147368297 Z12.11 Screening mammography 24 430240 Z12.31 Body mass index 30+ - obesity 061659637 Z68.32 will see about starting semaglutid e Amenorrhea 31090444 N91. 2 ?perimenop ause Hyperlipidemia 59078542 E78.5 Hyperglycemia 20194100 R 73.9 Vitamin D deficiency 347 20364 E55.9 [id number] Dominga Anderson MD [facility] [address] [address] 09/17/2023 12:09:17 09/17/2023 14:34:16 Dietary management surveillance [id number] Z71.3 trial of semaglutid e ordered through [facility] pharmacyre viewed potential med s/e, plan to titrate up q4 weeks as tolerated Urine looks dark 4359985 7 R82.525 [id number] FAM Michael [facility] [address] [address] 06/03/2024 16:24:31 06/03/2024 16:53:03 Vitamin D deficiency 82561374 E55.9 Will recheck labs as listed below. Cramp in lower limb 4499 46208 R25.2 Will check labs as listed below. Hyperlipidemia 71132535 E78.5 Will check labs as listed below. Hypothyroidism 09581697 E03.9 Will check labs as listed below. Hyperglycemia 91343804 R 73.9 Will check labs as listed below. Perimenopausal state 176 2062550 08551 Z78.0 Will check labs as listed below. [id number] FAM Michael [facility] [address] [address] 07/26/2024 11:14:53 07/26/2024 11:52:37 Menopausal flushing 281920828 N95.1 Discussed use of OTC supplement s as well as prescripti on options for symptom management . Hypothyroidism 19000142 E03.9 Will check labs next month as listed below. Dietary ma nagement surveillance 713529893 Z71.3 [id number] FAM Michael [facility] [address] [address] 11/08/2024 14:54:26 11/08/2024 16:15:59 General examination of patient 083755059 Z00.00 [id number] Discussed medication compliance and routine follow up.Discuss ed healthy diet and routine exercise.Kye jimenezwed vaccine records and made recommenda tions as needed.Enc ouraged annual eye and dental exams, as well as twice yearly dental cleanings. Fasting labs are UTD Active immunization 3387 9002 Z23 [id number] Hyperthyroidism 44440160 E05.90 71878 Will check labs as listed below. Dietary ma kelsey surveillance 984660484 Z71.3 Obese class I [id number] 45458 E66.374 [id number] Weight: 174 poundsBMI: 31.8 [id number] FAM Michael [facility] Primary [facility] [address] [place] [address] 12/01/2024 13:55:48 12/01/2024 14:24:13 Gynecologic examination 34286769 Z01.272 [id number] Patient tolerated well. Health Concerns Section Related Observation LastModified by Organization Detai ls LastModified Time None Recorded Concern Status LastModified by Organization Details LastModified Time None Recorded Advance Directives Directive None Recorded Payers Insurance Date Sequence Insurance Name Policy Number Policy Gordon Covered Member ID Gordon Member ID Guarantor Name 12/01/2024 1 [facility] [id number] Marquise Jeronimo [id number] Marquise Jeronimo 12/01/2024 [facility] Marquise Jeronimo SELF SELF Marquise Jeronimo 12/06/2024 1 [facility] [id number] Marquise Jeronimo [id number] Marquise Jeronimo Notes Date Note Type Note Provider Name and Address Organization Details Recorded Time 09/17/2023 text/html ROS as noted in the HPI urine is darker than it should be here for yearly physical. She had colonoscopy referral but it got cancelled by the facility and she did not have a chance to reschedule. Periods are becoming irregular, was very regular now getting further apart. Having hot flashes and night sweats update 09/17/23: no significant findings on labs. She is interested in using semaglutide for weight loss. No chest pain or sob. Her urine looks dark, no dysuria, no urinary urgency or frequency. Dominga Anderson MD [address], [place], [address], [employer] 09/21/2023 12:54:09 06/03/2024 text/html ROS as noted in the HPI Patient is a 49 year old female that presents to the office for follow up. Patient reports she is doing well on current medications. Patient reports she has been taking 1.5mg of Semaglutide for about 2 months now and is doing well. Patient is concerned with possible menopause due to irregular periods and hot flashes. Would like to have labs checked. Patient is also requesting to have TSH rechecked since it has not been checked since Dr. Anderson changed her medications prior to her leaving. FAM Michael [address], [place], [address], [employer] 06/09/2024 10:09:02 07/26/2024 text/html ROS as noted in the HPI Patient is a 49 year old female that presents to the office for 2 month follow up. Patient reports she is doing well overall. Patient reports since decreasing her Levothyroxine her hot flashes have returned and are worse than they were previously. Patient reports she is going to try OTC supplements for symptom treatment before starting any prescription medications. FAM Michael [address], [place], [address], [employer] 07/26/2024 14:03:27 11/08/2024 text/html Patient is a 49 year old female that presents to the office for annual wellness. Patient reports she is doing well and has no concerns at this time. labs-UTDWWE- awareMammogram- due in December ([facility])Colonoscopy- UTD (2023, repeat in 10 years)Flu- declinesCovid- UTD, initial dosesTdap- awareShingles-age 51 FAM Michael [address], [place], [address], [employer] 11/09/2024 09:49:16 12/01/2024 text/html Patient is a 49 year old female that presents to the office for well woman exam. Patient denies any concerns at this time. Taran Rebolledo, MECHANIC SOUND TECHNICIAN-C [address] [facility], [facility] [address], [place], [address], [facility] [employer] [facility] 12/01/2024 16:26:52 OBGyn Episode No OBEpisode recorded.
== END 2025-03-11 12:33 | disposition home or self-care (01) ==
PROVIDERS: Emergency Provider Nurse Practitioner; PCP Nurse Practitioner Family
DX: J02.9 Acute pharyngitis, unspecified (principal); E03.9 Hypothyroidism, unspecified
CPT/HCPCS: 87081; 87880; 99213; G0463